=== PATIENT | female | born 1965 | race Caucasian/White ===

== ENCOUNTER 2018-01-27 23:40 | Inpatient (IN) ==
--- NOTE | 2018-01-28 01:05 | Emergency Department Note ---
Disposition Clinical Impression: Cellulitis, toe Qualifiers: Laterality: right Qualified Code(s): L03.031 - Cellulitis of right toe Disposition: Admitted As Inpatient Condition: Good Time of Disposition: 02:51 Extremity Problem HPI - General Chief complaint: ED Extremity Problem,Nontraumatic Stated complaint: R Foot Toe Infection Time Seen by Provider: 01/28/18 00:02 Source: patient Limitations: no limitations Nursing Notes Reviewed: Yes Vital Signs Reviewed: Yes - History of Present Illness HPI Narrative: 53-year-old female diabetic presents with infection to her right second toe. She mentions that she is seen by Dr. Oliver, last appointment was approximately 3 weeks ago, she mentions she had a culture that was negative for MRSA. She mentions her toe has been draining pus for about 1 week. She was in the shower and noticed that it became more swollen which prompted her visit to the emergency department. She mentions a history of neuropathy and mentions that she is unable to determine if she has any worsening pain. She does mention she is concerned for worsening infection as she has had similar to this in her right great toe in the past that ended up with an amputation. She does mention she has had some chills, and some BLE swelling which is typical for her She denies fevers, abdominal pain, weakness, chest pain, shortness of breath, bowel or bladder symptoms. Pain Scale: 3 - Related Data Home Medications Medication Instructions Recorded Confirmed Gabapentin [Neurontin] 900 mg PO DAILY 04/04/17 01/28/18 Insulin Glargine [Lantus] 30 unit SQ DAILY 04/04/17 01/28/18 Metformin HCl [Glucophage] 1,000 mg PO BID 04/04/17 01/28/18 Umeclidinium Brm/Vilanterol Tr 1 each IH DAILY 04/04/17 01/28/18 [Anoro Ellipta 62.5-25 Mcg INH] Vitamin B Complex [B Complex] 1 each PO DAILY 04/04/17 01/28/18 Allergies Allergy/AdvReac Type Severity Reaction Status Date / Time No Known Allergies Allergy Verified 04/04/17 09:51 All systems ED: reviewed and negative except as stated. Review of Systems: As Per HPI Constitutional: Denies: fever, chills, weakness Eyes: Denies: vision change ENT ED: Denies: throat pain Cardiovascular: Denies: palpitations Respiratory: Denies: dyspnea, wheezes, hemoptysis Gastrointestinal: Denies: nausea Genitourinary: Denies: dysuria Musculoskeletal: Denies: back pain Integumentary: Denies: rash Neurological: Denies: headache, weakness, numbness, paresthesias Endocrine: Denies: fatigue Hematological/Lymphatic: Denies: easy bleeding Allergic/Immunologic: Denies: facial swelling Past Medical History - Past Medical History Medical history: Reports: asthma, COPD, diabetes, hyperlipidemia, hypertension, other Surgical history: Reports: orthopedic, other (Toe amputation) Psychiatric history: Reports: no psych history - Social History Smoking Status: Never smoker Smokeless Tobacco Status: No Alcohol use: Reports: none Drug use: Reports: none Physical Exam - General Limitations: no limitations General appearance: alert, in no apparent distress - Head Head exam: normocephalic - Eye Eye exam: Present: EOMI - ENT ENT exam: mucous membranes moist - Neck Neck exam: Present: full ROM - Chest Chest inspection: Present: symmetric chest wall rise - Respiratory Respiratory exam: Absent: respiratory distress - Cardiovascular Cardiovascular exam: Present: regular rate. Absent: tachycardia - Abdominal Exam Abdominal exam: Present: soft, Non-Tender - Extremities Exam Extremities exam: Present: normal capillary refill - Expanded Lower Extremity Exam Hip/Pelvis exam: Present: full ROM. Absent: tenderness Upper leg exam: Present: full ROM. Absent: tenderness Knee exam: Present: full ROM. Absent: tenderness, swelling Lower leg exam: Present: full ROM Ankle exam: Present: normal inspection, full ROM Foot/toe exam: Present: full ROM, swelling (right 2nd toe), erythema (right 2nd toe, active drainage, mild fluctuance), amputation (right great toe well healed). Absent: tenderness, deformity, nail avulsion, subungual hematoma Neurovascular/Tendon exam: Present: sensory deficit Gait: observed and limited by pain - Back Exam Back exam: Present: full ROM - Neurological Exam Neurological exam: Present: alert - Psychiatric Psychiatric exam: Present: normal affect, normal mood - Skin Skin exam: Present: warm, dry, intact, normal color. Absent: rash, cyanosis, diaphoresis Course Course Narrative: Patient presented with concern for infection over her right second toe. She is history diabetes, previous toe amputation, and neuropathy. On examination, right second toe is swollen compared to the contralateral side. There is a small degree of purulent material draining. Mild erythema, and skin breakdown. She has no unilateral leg swelling. Mild erythema over right [place], appears chronic, does not appear to be cellulitic. Patient's vitals within normal limits. We will plan for x-ray, lab work, consider IV antibiotics versus by mo uth antibiotics to home with close podiatry follow-up. - Reevaluation(s) Reevaluation #1: Patient's x-ray no evidence of osteomyelitis. Did discuss patient with Dr. Starks who also had face time with patient, and advised for admission for a IV antibiotics, and likely podiatry consult. BMP still pending. We will plan for IV antibiotics. Time: 02:18 Reevaluation #2: Dr. Starks discussed patient with hospitalist Dr. Paige, who accepted patient and requested IV levaquin Time: 03:52 Vital Signs Temperature 98.6 F 01/27/18 23:43 Pulse Rate 88 01/27/18 23:43 Respiratory Rate 18 01/27/18 23:43 Blood Pressure 159/83 01/27/18 23:43 O2 Sat by Pulse Oximetry 100 01/27/18 23:43 Temperature 98.4 F 01/28/18 03:13 Pulse Rate 88 01/28/18 03:13 Respiratory Rate 18 01/28/18 03:13 Blood Pressure 119/61 01/28/18 03:13 O2 Sat by Pulse Oximetry 99 01/28/18 03:13 Oxygen Delivery Oxygen Delivery Room Air Extremity Problem, [place] [facility] Narrative Medical decision making narrative: Foot X-Ray 01/28/18 01:01 IMPRESSION: 1. Resection or osteomyelitis of the distal phalanx of the 2nd toe. 2. Metallic foreign body in the plantar soft tissues. D/ / Vishal Nettles MD / Vishal Nettles MD Interpreting Provider: Vishal Nettles MD Laboratory Tests 01/28/18 01/28/18 01/28/18 01:27 01:27 01:27 WBC 11.1 RBC 4.08 Hgb 10.9 L Hct 34.3 L MCV 84.1 MCH 26.7 L MCHC 31.8 RDW 13.0 Plt Count 404 H MPV 11.4 Immature Gran % 0.3 Seg Neutrophils % 64.0 Lymphocytes % 25.5 Monocytes % 7.6 Eosinophils % 2.3 Basophils % 0.3 Neutrophils # 7.1 Lymphocytes # 2.8 Monocytes # 0.8 Eosinophils # 0.3 Basophils # 0.0 ESR >= 130 H Sodium 134 L Potassium 3.6 Chloride 97 L Carbon Dioxide 27 BUN 19 Creatinine 1.11 Est GFR ( Amer) > 60 Est GFR (Non-Af Amer) 51 L BUN/Creatinine Ratio 17 Glucose 257 H Calculated Osmolality 289 Lactic Acid Calcium 9.2 C-Reactive Protein 142 H 01/28/18 01:27 WBC RBC Hgb Hct MCV MCH MCHC RDW Plt Count MPV Immature Gran % Seg Neutrophils % Lymphocytes % Monocytes % Eosinophils % Basophils % Neutrophils # Lymphocytes # Monocytes # Eosinophils # Basophils # ESR Sodium Potassium Chloride Carbon Dioxide BUN Creatinine Est GFR ( Amer) Est GFR (Non-Af Amer) BUN/Creatinine Ratio Glucose Calculated Osmolality Lactic Acid 1.9 Calcium C-Reactive Protein - Lab Data Lab results reviewed: Yes I reviewed the patient's lab results. Result diagrams: 01/28/18 01:27 01/28/18 01:27 Lab Results 01/28/18 01/28/18 01/28/18 Range/Units 01:27 01:27 01:27 WBC 11.1 (4.3-11.1) K/mcL RBC 4.08 (3.82-4.97) M/mcL Hgb 10.9 L (11.5-15.4) g/dL Hct 34.3 L (35.3-44.9) % MCV 84.1 (83.0-100.0) fL MCH 26.7 L (28.0-33.3) pg MCHC 31.8 (31.6-35.5) g/dL RDW 13.0 (11.5-14.5) % Plt Count 404 H (140-400) K/mcL MPV 11.4 (9.4-12.4) fL Immature Gran % 0.3 (0-4) % Seg Neutrophils % 64.0 % Lymphocytes % 25.5 % Monocytes % 7.6 % Eosinophils % 2.3 % Basophils % 0.3 % Neutrophils # 7.1 (1.6-8.9) K/mcL Lymphocytes # 2.8 (0.6-4.6) K/mcL Monocytes # 0.8 (0.0-1.3) K/mcL Eosinophils # 0.3 (0.0-0.6) K/mcL Basophils # 0.0 (0.0-0.2) K/mcL ESR >= 130 H (0-15) mm/hr Sodium 134 L (136-145) mEq/L Potassium 3.6 (3.5-5.1) mEq/L Chloride 97 L (98-107) mEq/L Carbon Dioxide 27 (23-29) mEq/L BUN 19 (6-20) mg/dL Creatinine 1.11 (0.60-1.20) mg/dL Est GFR ( Amer) > 60 (> 60) Est GFR (Non-Af Amer) 51 L (> 60) BUN/Creatinine Ratio 17 (6-26) Glucose 257 H (70-105) mg/dL Calculated Osmolality 289 (280-300) Lactic Acid (0.5-2.2) mmol/L Calcium 9.2 (8.6-10.3) mg/dL C-Reactive Protein 142 H (Less than 10) mg/L 01/28/18 Range/Units 01:27 WBC (4.3-11.1) K/mcL RBC (3.82-4.97) M/mcL Hgb (11.5-15.4) g/dL Hct (35.3-44.9) % MCV (83.0-100.0) fL MCH (28.0-33.3) pg MCHC (31.6-35.5) g/dL RDW (11.5-14.5) % Plt Count (140-400) K/mcL MPV (9.4-12.4) fL Immature Gran % (0-4) % Seg Neutrophils % % Lymphocytes % % Monocytes % % Eosinophils % % Basophils % % Neutrophils # (1.6-8.9) K/mcL Lymphocytes # (0.6-4.6) K/mcL Monocytes # (0.0-1.3) K/mcL Eosinophils # (0.0-0.6) K/mcL Basophils # (0.0-0.2) K/mcL ESR (0-15) mm/hr Sodium (136-145) mEq/L Potassium (3.5-5.1) mEq/L Chloride (98-107) mEq/L Carbon Dioxide (23-29) mEq/L BUN (6-20) mg/dL Creatinine (0.60-1.20) mg/dL Est GFR ( Amer) (> 60) Est GFR (Non-Af Amer) (> 60) BUN/Creatinine Ratio (6-26) Glucose (70-105) mg/dL Calculated Osmolality (280-300) Lactic Acid 1.9 (0.5-2.2) mmol/L Calcium (8.6-10.3) mg/dL C-Reactive Protein (Less than 10) mg/L - Radiology Data Radiology results reviewed: Yes I reviewed the patient's radiology results. Attestation Statement - Attestation Attestation: Dr. Starks note: Patient was seen in conjunction with ETHAN Felipe; please see his charting for complete documentation. I spent [id number] time with the patient and I agree with the patient's treatment and disposition. Progressive/worsening/known infection to rt 2nd toe over the past few wks; already followed by the pt's sex offender treatment professional; no constitutional sx; no fever; labs noted; accepted by /to Dr Bedolla @ 2:30 a.m
[2018-01-28 01:38] LABS: Basophils % 0.3 %; Eosinophils # 0.3 K/mcL (0.0-0.6); Eosinophils % 2.3 %; Hematocrit 34.3 % (35.3-44.9); Hemoglobin 10.9 g/dL (11.5-15.4); Immature Granulocytes % 0.3 % (0-4); Lymphocytes # 2.8 K/mcL (0.6-4.6); Lymphocytes % 25.5 %; Mean Corpuscular HGB Conc 31.8 g/dL (31.6-35.5); Mean Corpuscular Hemoglobin 26.7 pg (28.0-33.3); Mean Corpuscular Volume 84.1 fL (83.0-100.0); Mean Platelet Volume 11.4 fL (9.4-12.4); Monocytes # 0.8 K/mcL (0.0-1.3); Monocytes % 7.6 %; Neutrophils # 7.1 K/mcL (1.6-8.9); Platelet Count 404 K/mcL (140-400); Red Blood Count 4.08 M/mcL (3.82-4.97)
[2018-01-28 01:55] LABS: BUN/Creatinine Ratio 17 (6-26); Blood Urea Nitrogen 19 mg/dL (6-20); C-Reactive Protein 142 mg/L (Less than 10); Calcium 9.2 mg/dL (8.6-10.3); Carbon Dioxide 27 mEq/L (23-29); Chloride 97 mEq/L (98-107); Glucose 257 mg/dL (70-105); Osmolality,Calculated 289 (280-300); Potassium 3.6 mEq/L (3.5-5.1); Sodium 134 mEq/L (136-145); eGFR For Non-African Americans 51 (> 60)
[2018-01-28] MEDS ORDERED: cefTRIAXone 1,000 MG in Water for inj. (sterile) 20 ML 10 ML IVP ONE (02:20)
[2018-01-28] MEDS ORDERED: Levofloxacin 750 MG/150 ML 750 MG/150 ML BAG IVPB ONE (02:23)
[2018-01-28] MEDS ORDERED: Acetaminophen 325 MG TABLET PO PRN (07:29)
[2018-01-28] MEDS ORDERED: Naloxone 0.4 MG/ML INJ IVP PRN (07:29)
[2018-01-28] MEDS ORDERED: Dextrose Gel 15 GM/37.5 ML TUBE PO PRN ×2 (07:32)
[2018-01-28] MEDS ORDERED: *HR* Dextrose 50 % in Water (Syg) 50 ML SYRINGE IVP PRN (07:32)
[2018-01-28] MEDS ORDERED: D5% in Water 1,000 ML IVC PRN (07:32)
--- NOTE | 2018-01-28 07:40 | Internal Med History&Physical ---
<Sabino Norwood - Last Filed: 01/28/18 08:24> Date of Encounter: 01/28/18 Time of Encounter: 07:35 Internal Medicine - H&P: HPI Chief complaint: toe pain Admitted From: Home Plans for Post Hospital Care: Home History of present illness: Ms. Clement is a 53 year old female with significant past medical history of type 2 diabetes with complications, COPD, diastolic heart failure, hyperlipidemia and vitamin D deficiency presents the emergency department with swelling of the second toe on the right foot. She had recently been seen by Dr. Oliver in the outpatient setting for incision and drainage of a wound on her second toe of her right foot. Cultures were obtained which demonstrated Staphylococcus lugdunensis. Her toe had been healing well until the past week which has since been draining pus from the wound site, increased swelling up into her calf associated with a sharp pain. She had been applying alcohol, Bacitracin and peroxide to the effected toe without improvement. She noticed in the shower last evening that it became swollen prompting her to present to the emergency department for further evaluation. She does have complications secondary to diabetes include bilateral lower extremity neuropathy, edema and previous amputation of her distal portion of her right hallux. She mentions that she did have some complaints of chills but denies any fevers, diaphoresis, abdominal pains, nausea vomiting diarrhea, chest pain shortness of breath or other lesions. Past Med Surg Social Fam HX - Past Medical History Medical history: asthma, COPD, diabetes, hyperlipidemia, hypertension, other Additional medical history: neuropathy feet. retinopathy right eye Psychiatric history: no psych history - Past Surgical History Surgical History: orthopedic, other (Toe amputation) Additional surgical history: eye surgeryx 5 - Social History Smoking Status: Never smoker Smokeless Tobacco Status: No Alcohol use: none Drug use: none - Family History Sister Hx Family Cardiac Disorders: Yes Internal Medicine - H&P: Meds Gabapentin [Neurontin] 900 mg PO DAILY 04/04/17 [History] Insulin Glargine [Lantus] 30 unit SQ DAILY 04/04/17 [History] Metformin HCl [Glucophage] 1,000 mg PO BID 04/04/17 [History] Umeclidinium Brm/Vilanterol Tr [Anoro Ellipta 62.5-25 Mcg INH] 1 each IH DAILY 04/04/17 [History] Vitamin B Complex [B Complex] 1 each PO DAILY 04/04/17 [History] 3 Allergy/AdvReac Type Severity Reaction Status Date / Time No Known Allergies Allergy Verified 04/04/17 09:51 All Systems PM: A 10-system review of systems was performed and is negative for pertinent findings except as documented above in the HPI. - Constitutional Constitutional: chills, no anorexia, no excessive sweating, no fatigue, no fever(s), no falls, no night sweats - EENT Eyes: no blurry vision, no irritation Nose, mouth and throat: no mouth pain - Cardiovascular Cardiovascular ROS IM: edema, no chest pain, no claudication, no diaphoresis, no dyspnea, no orthopnea, no palpitations - Respiratory Respiratory: no cough, no dyspnea, no wheezing, no snoring - Gastrointestinal Gastrointestinal: no abdominal pain, no nausea, no vomiting - Musculoskeletal Musculoskeletal ROS IM: joint swelling, numbness - Constitutional Vitals: Temp Pulse Resp BP Pulse Ox 98.1 F 84 14 133/79 98 01/28/18 06:14 01/28/18 06:14 01/28/18 06:14 01/28/18 06:14 01/28/18 06:14 General appearance: Present: A&O X 3 Exam: Gen: alert, oriented, interactive in no acute distress HEENT: NC/AT, PERRLA, mucus membranes moist, neck supple, trachea midline Cardiac: RRR, grade 2/6 systolic ejection murmur heard best over the mitral valve region RESP: CTABL Abdomen: obese, soft, nontender Extremities: patient moving all 4 extremities without restriction, bilateral edema with right>left with swelling of the right 2nd toe with associated drainage and tissue discoloration. No significant erythema past the 2nd toe. right hallux demonstrates previous amputation past the distal joint. Internal Med - H&P Results - Labs CBC & Chem 7: 01/28/18 01:27 01/28/18 01:27 Labs: Short CBC 01/28/18 Range/Units 01:27 WBC 11.1 (4.3-11.1) K/mcL Hgb 10.9 L (11.5-15.4) g/dL Hct 34.3 L (35.3-44.9) % Plt Count 404 H (140-400) K/mcL Neutrophils # 7.1 (1.6-8.9) K/mcL BMP 01/28/18 01:27 Sodium 134 L Potassium 3.6 Chloride 97 L Carbon Dioxide 27 BUN 19 Creatinine 1.11 Glucose 257 H Calcium 9.2 - Impressions ITS Impressions Foot X-Ray 01/28/18 01:01 IMPRESSION: 1. Resection or osteomyelitis of the distal phalanx of the 2nd toe. 2. Metallic foreign body in the plantar soft tissues. D/ / Vishal Nettles MD / Vishal Nettles MD Interpreting Provider: Vishal Nettles MD - Assessment and plan (1) Acute osteomyelitis of toe of right foot Current Visit: Yes Status: Acute Assessment and plan: patient presenting with right foot second toe swelling and drainage - lanced on 01/12/[address] Oliver's clinic with cultures growing Staphylococcus lugdunensis with broad sensitivity (resistant to Oxacillin) - patient had increase in edema, drainage (no pain since diabetic neuropathy in lower extremities) - ESR >130, CRP 142 - X-ray concerning for osteomylitis - Received a dose of ceftriaxone and Levaquin in the emergency department, due to his bacteria having increased resistance will start on vancomycin at this time. - Consult placed to Dr. Oliver, he plans to see her inpatient. (2) Uncontrolled type II diabetes mellitus with foot ulcer Current Visit: Yes Status: Acute Assessment and plan: Patient has a history of type 2 diabetes which is uncontrolled the setting of morbid obesity. Just secondary complications of previous osteomyelitis of the right hallux resulting in distal amputation in 2014, presenting with diabetic foot ulcer likely osteomyelitis. - Before meals at bedtime glucose checks - Sliding-scale insulin low dose - Levemir 10 units twice a day - Diabetic diet, nothing by mouth on Saturday night after midnight for potential operation on (3) Diabetic neurogenic arthropathy Current Visit: Yes Status: Acute Assessment and plan: Patient has bilateral lower extremity diabetic neuropathy with poor sensation exhibited during evaluation. Likely contributing to diabetic foot ulcers. - Patient is seen by podiatry - We will continue tight glucose control - Renal function appropriate, continue home dose of 900 mg at bedtime (4) Morbid obesity Current Visit: Yes Status: Acute Assessment and plan: Diabetic diet, calorie restrictions (5) COPD (chronic obstructive pulmonary disease) Current Visit: Yes Status: Acute Assessment and plan: History of COPD with mild obstructive lung disease. - Spiriva - Dual nebs when necessary Qualifiers: COPD type: unspecified COPD Qualified Code(s): J44.9 - Chronic obstructive pulmonary disease, unspecified (6) DVT prophylaxis Current Visit: Yes Status: Acute Assessment and plan: Subcutaneous heparin 5000 units every 8 hours - Time Spent With Patient Total time spent is greater than 50% in coordination of care (as documented) at patient's floor/unit and/or counseling patient: <Petrona Wilson - Last Filed: 01/28/18 09:18> Date of Encounter: 01/28/18 Internal Medicine - H&P: HPI History of present illness: Ms. Clement is a 53 year old female All Systems PM: A 10-system review of systems was performed and is negative for pertinent findings except as documented above in the HPI. - Constitutional Vitals: Temp Pulse Resp BP Pulse Ox 98.1 F 84 14 133/79 98 01/28/18 06:14 01/28/18 06:14 01/28/18 06:14 01/28/18 06:14 01/28/18 06:14 Internal Med - H&P Results - Labs CBC & Chem 7: 01/28/18 01:27 01/28/18 01:27 Labs: Short CBC 01/28/18 Range/Units 01:27 WBC 11.1 (4.3-11.1) K/mcL Hgb 10.9 L (11.5-15.4) g/dL Hct 34.3 L (35.3-44.9) % Plt Count 404 H (140-400) K/mcL Neutrophils # 7.1 (1.6-8.9) K/mcL BMP 01/28/18 01:27 Sodium 134 L Potassium 3.6 Chloride 97 L Carbon Dioxide 27 BUN 19 Creatinine 1.11 Glucose 257 H Calcium 9.2 - Impressions ITS Impressions Foot X-Ray 01/28/18 01:01 IMPRESSION: 1. Resection or osteomyelitis of the distal phalanx of the 2nd toe. 2. Metallic foreign body in the plantar soft tissues. D/ / Vishal Nettles MD / Vishal Nettles MD Interpreting Provider: Vishal Nettles MD - Assessment and plan (1) Acute osteomyelitis of toe of right foot Current Visit: Yes Status: Acute (2) Uncontrolled type II diabetes mellitus with foot ulcer Current Visit: Yes Status: Acute (3) Diabetic neurogenic arthropathy Current Visit: Yes Status: Acute (4) Morbid obesity Current Visit: Yes Status: Acute (5) COPD (chronic obstructive pulmonary disease) Current Visit: Yes Status: Acute Qualifiers: COPD type: unspecified COPD Qualified Code(s): J44.9 - Chronic obstructive pulmonary disease, unspecified (6) DVT prophylaxis Current Visit: Yes Status: Acute - Time Spent With Patient Total time spent is greater than 50% in coordination of care (as documented) at patient's floor/unit and/or counseling patient: - Attending Attestation I have seen and examined this patient independently. I have discussed with resi dent physician Dr. Norwood regarding the management plan. Agree with the documentation.
[2018-01-28] MEDS ORDERED: Ipratropium/Albuterol Neb 3 ML IH PRN (08:01)
[2018-01-28] MEDS ORDERED: Tdap (Boostrix) Vaccine 0.5 ML SYRINGE IM ONE (08:44)
[2018-01-28] MEDS ORDERED: Gabapentin 300 MG CAPSULE PO SCH (09:00)
[2018-01-28] MEDS: Insulin DETEMIR 100 UNIT/ML X5UNITS SQ SCH ×2 (09:32→22:18)
[2018-01-28] MEDS: Tiotropium 18 MCG inhalation IH SCH (11:04)
[2018-01-28] MEDS: Insulin LISPRO 300 UNITS/3 ML VIAL SQ SCH ×3 (12:13→22:17)
[2018-01-28] MEDS ORDERED: Isovue-370 500 ML INFUS..BTL IV ONE (13:32)
--- NOTE | 2018-01-28 13:51 | Podiatry Consult Note ---
Date of Encounter: 01/28/18 Time of Encounter: 12:00 Assessment and Plan (1) Acute osteomyelitis of toe of right foot Current visit: Yes Status: Acute Assessment: Edematous and erythematous right 2nd toe. Fluctuance noted to dorsal aspect of toe. Hyperkeratosis noted to plantar aspect and distal tip of toe. No drainage noted. Purple discoloration noted to dorsal aspect of 2nd toe. WBC 11.1 ESR > 130, CRP 142 Blood cultures pending Wound cultures received but not reported. Xray noted OM to 2nd toe distal phalanx XR/XR foot 3V RT IMPRESSION: 1. Resection or osteomyelitis of the distal phalanx of the 2nd toe. 2. Metallic foreign body in the plantar soft tissues. Plan: ABIs ordered CT with contrast of right foot ordered. Covered toe with adaptic, 4x4 dry gauze, and kerlex. Surgery with Dr. Oliver for toe amputation- time to be determined. NPO after midnight Saturday. History of Present Illness HPI: Ms. Clement is a 53 year old female who is known to podiatry clinic. Patient with PMH of HTN, HLD, DM type II, Vitamin D deficiecny, COPD (bronchitis), obesity, RF, Diabetic retinopathy with retinal surgery, partial right great toe amputation, Diabetic neuropathy, and obesity. Patient reports she was seen in office with Dr. Oliver on 01/07/18 where she was noted to have a hemorrhagic bullae noted. Bullae was debrided in office and patient was instructed to wash and dry foot with warm water and soap and to keep dry dressing to foot. Patient reports she was to have a follow up appointment with Dr. Oliver on 02/04/18. Patient reports worsening smell and purulent drainage noted last evening 01/27/18 and came to the hospital. Reports edema and erythema to RLE. Reports occasional shooting pain up leg. Denies fevers, chills, nausea, vomiting, chest pain, calf pain, or shortness of breath. Past Med Surg Social Fam HX - Past Medical History Medical history: asthma, COPD, diabetes, hyperlipidemia, hypertension, other Additional medical history: neuropathy feet. retinopathy right eye Psychiatric history: no psych history - Past Surgical History Surgical History: orthopedic, other (Toe amputation) Additional surgical history: eye surgeryx 5 - Social History Smoking Status: Never smoker Smokeless Tobacco Status: No Alcohol use: none Drug use: none - Family History Sister Hx Family Cardiac Disorders: Yes Medications and Allergies Gabapentin [Neurontin] 900 mg PO DAILY 04/04/17 [History] Insulin Glargine [Lantus] 30 unit SQ DAILY 04/04/17 [History] Metformin HCl [Glucophage] 1,000 mg PO BID 04/04/17 [History] Vitamin B Complex [B Complex] 1 each PO DAILY 04/04/17 [History] Albuterol Sulfate [Ventolin Hfa] 2 puff IH Q6H PRN 01/28/18 [History] Furosemide [Lasix] 20 mg PO DAILY 01/28/18 [History] Insulin LISPRO [Humalog Kwikpen U-100] 0 unit SQ TID PRN 01/28/18 [History] Losartan/Hydrochlorothiazide [Hyzaar 100-25 Tablet] 1 tab PO DAILY 01/28/18 [History] Magnesium Oxide [Magnesium] 250 mg PO DAILY 01/28/18 [History] Mometasone/Formoterol [Dulera 100 Mcg/5 Mcg Inhaler] 2 puff IH BID 01/28/18 [History] Turmeric Root Extract [Turmeric] 500 mg PO DAILY 01/28/18 [History] Zolpidem [Ambien] 10 mg PO HS PRN 01/28/18 [History] glipiZIDE [Glucotrol] 5 mg PO BIDWM 01/28/18 [History] Allergy/AdvReac Type Severity Reaction Status Date / Time No Known Allergies Allergy Verified 04/04/17 09:51 All Systems Reviewed: The remainder of the systems were reviewed and are negative - Constitutional Constitutional: no fever(s) - Cardiovascular Cardiovascular: leg edema, pedal edema, no chest pain, no dyspnea - Respiratory Respiratory: no dyspnea - Musculoskeletal Musculoskeletal: as per HPI, numbness, radiating pain into limb, tingling, no muscle cramps Physical Exam - Constitutional Vitals: Temp Pulse Resp BP Pulse Ox 97.3 F L 78 15 134/83 96 01/28/18 10:41 01/28/18 10:41 01/28/18 10:41 01/28/18 10:41 01/28/18 10:41 Exam: Constitiutional: Alert and oriented x 3. Vascular: non palpable DP/PT, CFT <3 sec to digits 3-5, no nail noted to 2nd digit RLE, skin blanchable, warm to warm from tibia to toes RLE, 1st hallux partial amputation RLE, no calf pain with squeeze RLE Neurologic: Diminished sensation to touch, normal plantar response, Abnormal position sense dorsiflexion/plantar flexion Dermatologic: right second toe with hyperkeratosis noted to plantar aspect, dorsal aspect of toe noted to be erythematous and edematous, purple discoloration noted to nail bed. No nail noted. No drainage noted. Musculoskeletal: 5/5 muscle strength and normal tone RLE Results - Labs Result Diagrams: 01/28/18 01:27 01/28/18 01:27 Labs: Abnormal lab results Hgb 10.9 g/dL (11.5-15.4) L 01/28/18 01:27 Hct 34.3 % (35.3-44.9) L 01/28/18 01:27 MCH 26.7 pg (28.0-33.3) L 01/28/18 01:27 Plt Count 404 K/mcL (140-400) H 01/28/18 01:27 ESR >= 130 mm/hr (0-15) H 01/28/18 01:27 Sodium 134 mEq/L (136-145) L 01/28/18 01:27 Chloride 97 mEq/L (98-107) L 01/28/18 01:27 Est GFR (Non-Af Amer) 51 (> 60) L 01/28/18 01:27 Glucose 257 mg/dL (70-105) H 01/28/18 01:27 C-Reactive Protein 142 mg/L (Less than 10) H 01/28/18 01:27 H & H 01/28/18 Range/Units 01:27 Hgb 10.9 L (11.5-15.4) g/dL Hct 34.3 L (35.3-44.9) % All other labs normal. - Diagnostic results Ankle/Foot x-ray: report reviewed Consult Discharge Plan - Plan Referrals: Lia Browne, TRAUMA COUNSELLOR [Primary Care Provider] -
[2018-01-28 15:36] LABS: Estimated Average Glucose 214 mg/dl; Hemoglobin A1C 9.1 %
[2018-01-28] MEDS: *HR* Heparin 5,000 UNIT/ML VIAL SQ SCH ×2 (16:30→22:18)
[2018-01-28] MEDS: traMADol 50 MG TABLET PO PRN (19:47)
[2018-01-28] MEDS: Gabapentin 300 MG CAPSULE PO SCH (19:47)
[2018-01-29 04:42] LABS: Basophils % 0.2 %; Eosinophils # 0.2 K/mcL (0.0-0.6); Eosinophils % 2.7 %; Hematocrit 32.4 % (35.3-44.9); Hemoglobin 10.4 g/dL (11.5-15.4); Immature Granulocytes % 0.2 % (0-4); Lymphocytes % 35.5 %; Mean Corpuscular HGB Conc 32.1 g/dL (31.6-35.5); Mean Corpuscular Volume 84.2 fL (83.0-100.0); Mean Platelet Volume 11.4 fL (9.4-12.4); Monocytes # 0.6 K/mcL (0.0-1.3); Monocytes % 7.5 %; Neutrophils # 4.6 K/mcL (1.6-8.9); Nucleated Red Blood Cells 0.2 /100 WBC (0); Platelet Count 436 K/mcL (140-400); Red Blood Count 3.85 M/mcL (3.82-4.97); Red Cell Distribution Width 13.2 % (11.5-14.5); Segmented Neutrophils % 53.9 %
[2018-01-29 05:03] LABS: BUN/Creatinine Ratio 16 (6-26); Blood Urea Nitrogen 15 mg/dL (6-20); Calcium 9.2 mg/dL (8.6-10.3); Carbon Dioxide 28 mEq/L (23-29); Chloride 100 mEq/L (98-107); Glucose 184 mg/dL (70-105); Osmolality,Calculated 288 (280-300); Potassium 3.6 mEq/L (3.5-5.1); Sodium 136 mEq/L (136-145); eGFR For Non-African Americans > 60 (> 60)
[2018-01-29] MEDS: *HR* Heparin 5,000 UNIT/ML VIAL SQ SCH ×3 (06:38→21:06)
[2018-01-29] MEDS: Insulin LISPRO 300 UNITS/3 ML VIAL SQ SCH ×4 (07:39→21:06)
[2018-01-29] MEDS: Insulin DETEMIR 100 UNIT/ML X5UNITS SQ SCH ×2 (10:08→21:06)
[2018-01-29] MEDS: Tiotropium 18 MCG inhalation IH SCH (11:45)
--- NOTE | 2018-01-29 12:59 | Podiatry Progress Note ---
Date of Encounter: 01/29/18 Time of Encounter: 10:15 - Assessment and Plan (1) Acute osteomyelitis of toe of right foot Current Visit: Yes Status: Acute Assessment: Edematous and erythematous right 2nd toe. Fluctuance noted to dorsal aspect of toe. Hyperkeratosis noted to plantar aspect and distal tip of toe. No drainage noted. Purple discoloration noted to dorsal aspect of 2nd toe. WBC 8.5 today 01/28/18 ESR > 130, CRP 142 Blood cultures pending Wound cultures show no pathogens at this time Xray noted OM to 2nd toe distal phalanx FORREST prelim-Right PT- 0.93 DP-1.07, Left PT- 1.27 and DP- 1.32. CT reviewed, showed OM HGB A1C 9.1 CT/CT foot RT w con IMPRESSION: 1. Findings above consistent with osteomyelitis along the distal phalanx of the 2nd digit and along the distal aspect of the middle phalanx of the 2nd digit with associated soft tissue and intramedullary gas and a severe cellulitis of the 2nd digit. Ulceration of the distal 2nd digit. 2. Moderate cellulitis of the ankle and foot. 3. Prior amputation of the distal phalanx of the 1st digit. 4. No discrete rim enhancing organized fluid collection identified. The findings were sent to the [facility] at 3:12 pm on 01/28/2018to be communicated to a licensed caregiver. Plan: Dressing to 2nd toe C/D/I Nursing changed this am. Surgery tomorrow with Dr. Oliver. Plan for partial amp of 2nd toe, possible complete amputation NPO after midnight Subjective Interval history: Patient awake in bed. Alert and oriented x 3. No signs of distress noted. Reports improvement in swelling and redness to RLE. Denies any nausea, fever, chest pain, calf pain, shortness of breath, diarrhea, vomiting, or chills. Patient aware of plan for surgery tomorrow. No other questions or concerns at this time. Objective - Vital Signs Vital Signs: Vital Signs Temp Pulse Resp BP Pulse Ox 01/29/18 11:46 16 96 01/29/18 10:28 98.2 F 81 15 116/80 96 01/29/18 06:43 98.0 F 77 14 118/79 96 01/29/18 02:44 97.9 F 90 16 126/73 93 01/28/18 19:26 98.9 F 82 11 144/80 95 01/28/18 13:57 97.7 F 76 15 148/80 95 Intake and Output 01/28/18 01/29/18 01/29/18 23:59 07:59 15:59 Intake Total 0 / 0 500 / 500 120 / 120 Output Total 800 / 800 600 / 600 0 / 0 Balance -800 / -800 -100 / -100 120 / 120 Intake: IV Fluids 500 / 500 Vancocin 2,000 MG In 0.9 % 500 / 500 Sodium Chloride 500 ML @ 250 mls/hr IVPB Q12H MEME Rx#: [id number] Oral 0 / 0 0 / 0 120 / 120 Output: Urine 800 / 800 600 / 600 0 / 0 Other: Meal Dinner Breakfast Percent of Meal Consumed 100% 100% Stool Size Moderate # Voids 1 # Bowel Movements 1 Weight 157.3 kg Blood Glucose* 211 173 289 Patient Weight 01/29/18 23:59 Weight 157.3 kg - Exam Exam: Constitiutional: Alert and oriented x 3. Vascular: non palpable DP/PT, CFT <3 sec to digits 3-5, no nail noted to 2nd digit RLE, skin blanchable, warm to warm from tibia to toes RLE, 1st hallux partial amputation RLE, no calf pain with squeeze RLE Neurologic: Diminished sensation to touch, normal plantar response, Abnormal position sense dorsiflexion/plantar flexion Dermatologic: right second toe with hyperkeratosis noted to plantar aspect, dorsal aspect of toe noted to be erythematous and edematous, purple discoloration noted to nail bed. No nail noted. No drainage noted. Musculoskeletal: 5/5 muscle strength and normal tone RLE - Lab Result Diagrams: 01/29/18 03:59 01/29/18 03:59 Labs: Abnormal lab results Hgb 10.4 g/dL (11.5-15.4) L 01/29/18 03:59 Hct 32.4 % (35.3-44.9) L 01/29/18 03:59 MCH 27.0 pg (28.0-33.3) L 01/29/18 03:59 Plt Count 436 K/mcL (140-400) H 01/29/18 03:59 Nucleated RBCs/100 WBC 0.2 /100 WBC (0) H 01/29/18 03:59 ESR >= 130 mm/hr (0-15) H 01/28/18 01:27 Glucose 184 mg/dL (70-105) H 01/29/18 03:59 POC Glucose 234 mg/dL (70-99) H 01/28/18 16:24 Hemoglobin A1c 9.1 % (-5.6) H 01/28/18 14:57 C-Reactive Protein 142 mg/L (Less than 10) H 01/28/18 01:27 Microbiology, Last 48 Hours 01/28/18 09:30 Wound Culture - Preliminary Second Right Toe No pathogens isolated. 01/28/18 01:27 Blood Culture - Preliminary Peripheral Venipuncture Culture is incubating and being continuously monitored for growth. Final report to follow. 01/28/18 01:27 Blood Culture - Preliminary Peripheral Venipuncture Culture is incubating and being continuously monitored for growth. Final report to follow. Consult Discharge Plan - Plan Additional Instructions: Follow up in office 1 week post discharge. Please make appointment prior to d/c from hospital. Referrals: Lia Browne CNP [Primary Care Provider] - Dez Oliver DPM [Partnered Physician] -
--- NOTE | 2018-01-29 19:23 | Anesthesia Evaluation PreOp ---
Date of Encounter: 01/29/18 Time of Encounter: 21:30 - Past History Planned Operation: R-partial 2nd Toe Amp Cardiac History: CHF (diastolic heart failure [Denies]), Hyperlipidemia Pulmonary History: COPD, ILIR Dx (Non-compliant CPAP use) EDUCATIONAL ASSISTANT History: Other (Diabetic Neuropathy [feet]/Retinopathy) Other Medical History: Diabetes Type II Anesthesia History: No Prior Anesthetic Complications, Past Anesthesia (Eye surgery x 5, Toe Amp,) Alcohol Use: none Drug use: none Medications and Allergies Gabapentin [Neurontin] 900 mg PO DAILY 04/04/17 [History] Insulin Glargine [Lantus] 30 unit SQ DAILY 04/04/17 [History] Metformin HCl [Glucophage] 1,000 mg PO BID 04/04/17 [History] Vitamin B Complex [B Complex] 1 each PO DAILY 04/04/17 [History] Albuterol Sulfate [Ventolin Hfa] 2 puff IH Q6H PRN 01/28/18 [History] Furosemide [Lasix] 20 mg PO DAILY 01/28/18 [History] Insulin LISPRO [Humalog Kwikpen U-100] 0 unit SQ TID PRN 01/28/18 [History] Losartan/Hydrochlorothiazide [Hyzaar 100-25 Tablet] 1 tab PO DAILY 01/28/18 [History] Magnesium Oxide [Magnesium] 250 mg PO DAILY 01/28/18 [History] Mometasone/Formoterol [Dulera 100 Mcg/5 Mcg Inhaler] 2 puff IH BID 01/28/18 [History] Turmeric Root Extract [Turmeric] 500 mg PO DAILY 01/28/18 [History] Zolpidem [Ambien] 10 mg PO HS PRN 01/28/18 [History] glipiZIDE [Glucotrol] 5 mg PO BIDWM 01/28/18 [History] Allergy/AdvReac Type Severity Reaction Status Date / Time No Known Allergies Allergy Verified 04/04/17 09:51 - Meds/Allergy Pre-op Review Medications Reviewed: Yes Allergies Reviewed: Yes Beta Blockers on Current Med List: No Anesthesia Results - Labs 01/29/18 03:59 01/29/18 03:59 Laboratory Tests 04/04/17 01/28/18 01/28/18 10:16 14:57 20:16 PT 11.3 INR 1.1 APTT 31.9 Est GFR (Non-Af Amer) POC Glucose 211 H Est Mean Plasma Glucose 214 Hemoglobin A1c 9.1 H 01/29/18 03:59 PT INR APTT Est GFR (Non-Af Amer) > 60 POC Glucose Est Mean Plasma Glucose Hemoglobin A1c - Imaging EKG: report reviewed (91bpm - SINUS RHYTHM Poor R wave progression Electronically Signed On 04-04-2017 20:33:25 EST by Cl Katz MD) Additional studies: ECHO 10/24/2017 EV/EV echocardiogram Impressions: Technically sub-optimal due to body habitus. LVEF 55-60%. Not all LV segments were well visualized, but overall LVEF appears normal. Moderate left ventricular diastolic dysfunction. Grossly, the right ventricle is mildly dilated. Function is normal. Borderline mild pulmonary hypertension. No obvious significant valvular dysfunction. Left Ventricular Wall Motion: Rest Echo Findings All wall segments showed normal motion. Anesthesia Exam Vital Signs Temp Pulse Resp BP Pulse Ox 01/29/18 18:56 98.5 F 82 14 137/83 97 01/29/18 14:28 98.4 F 84 15 132/58 96 01/29/18 11:46 16 96 01/29/18 10:28 98.2 F 81 15 116/80 96 01/29/18 06:43 98.0 F 77 14 118/79 96 01/29/18 02:44 97.9 F 90 16 126/73 93 Intake and Output 01/29/18 01/29/18 01/29/18 07:59 15:59 23:59 Intake Total 500 / 500 740 / 740 Output Total 600 / 600 0 / 0 Balance -100 / -100 740 / 740 Intake: IV Fluids 500 / 500 500 / 500 Vancocin 2,000 MG In 0.9 % 500 / 500 500 / 500 Sodium Chloride 500 ML @ 250 mls/hr IVPB Q12H MEME Rx#: [id number] Oral 0 / 0 240 / 240 Output: Urine 600 / 600 0 / 0 Other: Meal Lunch Dinner Percent of Meal Consumed 100% 100% # Voids 1 Weight 157.3 kg Blood Glucose* 173 289 253 Patient Weight 01/29/18 23:59 Weight 157.3 kg Height: 5'5" Weight: 346# BMI = 58 - HEENT Pupil (Motor): Pupils equal, EOMI - EDUCATIONAL ASSISTANT LOC: Oriented EDUCATIONAL ASSISTANT Motor: Normal RUE, Normal LUE, Normal RLE, Normal LLE, Normal Face EDUCATIONAL ASSISTANT Sensory: Normal: RUE, LUE, RLE, LLE, Face - Cardiac Rhythm: Regular Murmur: None - Pulmonary Breath Sounds: bilateral Clear Respiratory Effort: Symmetrical Anesthesia Assess/Plan ASA Score: 3 (MO/BMI = 58, DM, COPD) Level of consciousness: Cooperative, Oriented, Tranquil Anesthetic Plan: General, MAC Monitoring Plan: Standard Monitors Recovery Plan: PACU Anes Supervising Prov Stmt: Pt seen/evaluated, R&B discussed, questions answered and consent obtained. Jovita Marte MD
[2018-01-29] MEDS: Gabapentin 300 MG CAPSULE PO SCH (20:01)
[2018-01-29] MEDS: Budesonide/Formoterol 160/4.5 1 PUFF INH IH SCH (22:33)
[2018-01-29] MEDS: traMADol 50 MG TABLET PO PRN (22:58)
--- NOTE | 2018-01-29 23:04 | Internal Med Progress Note ---
Hospitalist Progress Note - Encounter Date of Encounter: 01/29/18 Time of Encounter: 19:00 - Subjective Interval History: SUBJECTIVE: The patient feels pretty good. The pain in the area of right foot seems to be under control. Denies chest pain. Denies difficulty breathing, coughing and wheezing. She has normal urination. OBJECTIVE: Skin: Free of rash and discoloration. See notes from podiatry describing the diabetic ulcer of seconds right toe. ENMT: Oral/pharyngeal mucosa is normal in appearance. Eyes: Sclera is white. There is no discharge from eyes. Respiratory: Normal breath sounds; no crackles or wheezes. CV: Heart is regular; no gallop or murmur. GI: Abdomen is soft and not tender. There is no palpable mass or visceromegaly. Neuro: There is no focal deficits. ADDITIONAL DATA: Hemoglobin is 10.4 with normal WBC. Platelet count is 436,000. Electrolytes are normal. Creatinine is 0.92. Her fingersticks and her glucose from today were 173, 289 and 253. ASSESSMENT AND PLAN: Osteomyelitis of second right toe (the right foot). See notes from podiatry. The patient is on IV vancomycin. She will undergo surgery tomorrow. Type 2 diabetes mellitus with hyperglycemia, diabetic foot ulcer and diabetic neuropathy. To continue Levemir and when necessary Humalog. We will do adjustments, if needed. COPD. Stable/controlled. To continue Spiriva and when necessary inhalations with DuoNeb. Morbid obesity with BMI of 57.8. To consult our foreign exchange student coordinator. - Exam Vitals: Temp Pulse Resp BP Pulse Ox 98.5 F 82 16 137/83 97 01/29/18 18:56 01/29/18 18:56 01/29/18 22:33 01/29/18 18:56 01/29/18 22:33 Exam: xx - Assessment and Plan (1) Acute osteomyelitis of toe of right foot Current Visit: Yes Status: Acute (2) Type 2 diabetes mellitus with hyperglycemia Current Visit: Yes Status: Acute (3) Type 2 diabetes mellitus with foot ulcer Current Visit: Yes Status: Acute (4) Type 2 diabetes mellitus with diabetic neuropathy Current Visit: Yes Status: Acute (5) COPD (chronic obstructive pulmonary disease) Current Visit: Yes Status: Acute (6) Morbid obesity with BMI of 50.0-59.9, adult Current Visit: Yes Status: Chronic - Time Spent with Patient Total time spent is greater than 50% in coordination of care (as documented) at patient's floor/unit and/or counseling patient: Internal Medicine: Result - Labs CBC & Chem 7: 01/29/18 03:59 01/29/18 03:59 Labs: Short CBC 01/29/18 Range/Units 03:59 WBC 8.5 (4.3-11.1) K/mcL Hgb 10.4 L (11.5-15.4) g/dL Hct 32.4 L (35.3-44.9) % Plt Count 436 H (140-400) K/mcL Neutrophils # 4.6 (1.6-8.9) K/mcL BMP 01/29/18 03:59 Sodium 136 Potassium 3.6 Chloride 100 Carbon Dioxide 28 BUN 15 Creatinine 0.92 Glucose 184 H Calcium 9.2 Consult Discharge Plan - Plan Additional Instructions: Follow up in office 1 week post discharge. Please make appointment prior to d/c from hospital. Referrals: Dez Oliver DPM [Partnered Physician] - Lia Browne CNP [Primary Care Provider] - (5) COPD (chronic obstructive pulmonary disease) Qualifiers: COPD type: unspecified COPD Qualified Code(s): J44.9 - Chronic obstructive pulmonary disease, unspecified
[2018-01-30] MEDS: *HR* Heparin 5,000 UNIT/ML VIAL SQ SCH ×3 (05:05→21:41)
[2018-01-30] MEDS: Insulin LISPRO 300 UNITS/3 ML VIAL SQ SCH ×4 (08:17→21:41)
[2018-01-30] MEDS ORDERED: *HR* Midazolam HCl 2 MG/2 ML VIAL ONE (08:18)
[2018-01-30] MEDS ORDERED: *HR* FentaNYL (PF) 100 MCG/2 ML VIAL ONE (08:18)
[2018-01-30] MEDS ORDERED: Lidocaine -MPF 2% 2 ML VIAL ONE (08:19)
[2018-01-30] MEDS ORDERED: Propofol 500 MG/50 ML INFUS..BTL ONE (08:20)
[2018-01-30] MEDS ORDERED: Bupivacaine/Clonidine Syringe 1 EACH SYRINGE ONE (09:14)
[2018-01-30] MEDS ORDERED: *HR* Propofol 200 MG/20 ML VIAL IVP ONE (09:58)
--- NOTE | 2018-01-30 10:22 | Orthopedic Operative Note ---
Date of procedure: 01/30/18 Pre-op diagnosis: #1: Necrotic toe #2 right foot with osteomyelitis Post-op diagnosis: same Procedure: 01/30/18 10:18 #1: Amputation second toe at the level of the base of proximal phalanx, right foot Implants: None Complications: None Anesthesia: MAC, local Local Anesthetics: 0.25% Sensorcaine HCL SubQ (cc) Surgeon: Dez Oliver Was there an assistant food service manager present: No Estimated blood loss (cc): 5 Tourniquet Time (Minutes): 0 Specimen: Toe #2 right foot Condition: stable Disposition: floor Procedure in Detail: 01/30/18 10:19 Details in summary of procedure: Patient brought to surgical suite. A sign in procedure was performed. Patient was then transferred surgical table positioned properly safely securely. Right foot is elevated on a foam block. No tourniquet was used. The right foot was then prepped with alcohol 3 times. Anesthetic timeout was taken patient was sedated. A modified ankle block was carried out with Marcaine with clonidine. No epinephrine. Right foot was then prepped and draped in usual sterile manner. Surgical timeout taken. Inspection of the second digit noted the toe to be completely indurated. Necrosis of the distal aspect of the second toe. Review of MRI reveals osteomyelitis distal and middle phalanx. At that juncture a standard incision was begun dorsal aspect second MTPJ and brought medially and laterally meeting at the base of the sulcus of the toe. This racquet incision was completed down to bone. Periosteal elevation with a clean 15 was performed down the base the proximal phalanx. The toe was disarticulated level of the proximal phalangeal joint. The head of the proximal phalanx was be pristine. The cartilaginous surfaces of the second toe proximal phalanx was pristine. Normal color texture density. No further necrosis proximally. No evidence of infection. Wound edges of the incision were noted to bleed freely without necessitating use of Bovie ligature. Wound was then flushed with copious amounts sterile saline. Finding no bone chips or debris dissection was carried down the base the proximal phalanx. At which time the osteotomy was complete the base of shaft of the proximal phalanx leaving the base of the phalanx intact. The wound was then flushed with copious must sterile saline. Finding no bone chips or debris the flexor tendons and the extensor tendons were anastomosed with 3-0 Vicryl. Skin closed with 3-0 Prolene. No complications assessment blood loss less than 5 mL was then dressed with sterile Adaptic 4 x 4's and Kerlix. Capillary rebound t blas was noted to be 3 seconds or less of toes #[id number]. Patient was then sent to holding room in good condition with vital signs stable.
[2018-01-30] MEDS ORDERED: D5% in Water 1,000 ML IVC PRN (10:43)
[2018-01-30] MEDS ORDERED: Naloxone 0.4 MG/ML INJ IVP PRN (10:43)
[2018-01-30] MEDS ORDERED: Dextrose Gel 15 GM/37.5 ML TUBE PO PRN ×2 (10:43)
[2018-01-30] MEDS ORDERED: Ipratropium/Albuterol Neb 3 ML IH PRN (10:43)
[2018-01-30] MEDS ORDERED: *HR* Dextrose 50 % in Water (Syg) 50 ML SYRINGE IVP PRN (10:43)
[2018-01-30] MEDS ORDERED: Acetaminophen 325 MG TABLET PO PRN (10:43)
[2018-01-30] MEDS: Budesonide/Formoterol 160/4.5 1 PUFF INH IH SCH ×2 (11:14→20:22)
[2018-01-30] MEDS: Tiotropium 18 MCG inhalation IH SCH (11:15)
[2018-01-30] MEDS: Insulin DETEMIR 100 UNIT/ML X5UNITS SQ SCH (21:41)
[2018-01-30] MEDS: Gabapentin 300 MG CAPSULE PO SCH (21:42)
--- NOTE | 2018-01-30 22:43 | Internal Med Progress Note ---
Hospitalist Progress Note - Encounter Date of Encounter: 01/30/18 Time of Encounter: 19:00 - Subjective Interval History: SUBJECTIVE: The patient underwent surgery on her right foot today. She did well during and after the surgery. Denies having pain in the right foot. Denies chest pain and difficulty breathing. She makes good amounts of urine. OBJECTIVE: Skin: Free of rash and discoloration. See notes from podiatry describing the diabetic ulcer of seconds right toe. ENMT: Oral/pharyngeal mucosa is normal in appearance. Eyes: Sclera is white. There is no discharge from eyes. Respiratory: Normal breath sounds; no crackles or wheezes. CV: Heart is regular; no gallop or murmur. GI: Abdomen is soft and not tender. There is no palpable mass or visceromegaly. Neuro: There is no focal deficits. ADDITIONAL DATA: Hemoglobin is 10.4 with normal WBC. Platelet count is 436,000. Electrolytes are normal. Creatinine is 0.92. Her fingersticks and her glucose from today were 173, 289 and 253. ASSESSMENT AND PLAN: Osteomyelitis of the second toe (the right foot). The patient underwent amputation of the second toe at the level of the base of proximal phalanx, right foot. See notes from podiatry. The patient is on IV vancomycin. Wound cultures are pending. Type 2 diabetes mellitus with hyperglycemia, diabetic foot ulcer and diabetic neuropathy. To continue Levemir and when necessary Humalog. We will do adjustments, if needed. COPD. Stable/controlled. To continue Spiriva and when necessary inhalations with DuoNeb. Morbid obesity with BMI of 57.8. To consult our rehabilitation aide/scheduler. Disposition: The patient will likely benefit from referral to ECF. - Exam Vitals: Temp Pulse Resp BP Pulse Ox 98.7 F 82 18 156/87 98 01/30/18 19:04 01/30/18 19:04 01/30/18 20:24 01/30/18 19:04 01/30/18 20:24 Exam: xx - Assessment and Plan (1) Acute osteomyelitis of toe of right foot Current Visit: Yes Status: Acute (2) Type 2 diabetes mellitus with hyperglycemia Current Visit: Yes Status: Acute (3) Type 2 diabetes mellitus with foot ulcer Current Visit: Yes Status: Acute (4) Type 2 diabetes mellitus with diabetic neuropathy Current Visit: Yes Status: Acute (5) COPD (chronic obstructive pulmonary disease) Current Visit: Yes Status: Acute (6) Morbid obesity with BMI of 50.0-59.9, adult Current Visit: Yes Status: Chronic - Time Spent with Patient Total time spent is greater than 50% in coordination of care (as documented) at patient's floor/unit and/or counseling patient: 25 - 35 minutes Plan of Care Discussed with: patient Internal Medicine: Result - Labs CBC & Chem 7: 01/29/18 03:59 01/29/18 03:59 Consult Discharge Plan - Plan Additional Instructions: Follow up in office 1 week post discharge. Please make appointment prior to d/c from hospital. Referrals: Dez Oliver DPM [Partnered Physician] - Lia Browne CNP [Primary Care Provider] - (5) COPD (chronic obstructive pulmonary disease) Qualifiers: COPD type: unspecified COPD Qualified Code(s): J44.9 - Chronic obstructive pulmonary disease, unspecified
[2018-01-31] MEDS: traMADol 50 MG TABLET PO PRN ×2 (00:06→23:17)
[2018-01-31] MEDS: *HR* Heparin 5,000 UNIT/ML VIAL SQ SCH ×3 (05:20→22:32)
[2018-01-31] MEDS: Budesonide/Formoterol 160/4.5 1 PUFF INH IH SCH ×2 (07:44→22:21)
[2018-01-31] MEDS: Tiotropium 18 MCG inhalation IH SCH (07:44)
[2018-01-31] MEDS: Insulin LISPRO 300 UNITS/3 ML VIAL SQ SCH ×4 (07:54→22:33)
[2018-01-31] MEDS: Insulin DETEMIR 100 UNIT/ML X5UNITS SQ SCH ×2 (09:36→22:33)
[2018-01-31] MEDS ORDERED: Aminoglycoside Consult 1 EACH MC ONE (11:07)
--- NOTE | 2018-01-31 14:42 | Podiatry Progress Note ---
Date of Encounter: 01/31/18 Time of Encounter: 12:00 - Assessment and Plan (1) Acute osteomyelitis of toe of right foot Current Visit: Yes Status: Acute Assessment: S/P right 2nd toe amputation 01/31/[address] Oliver Incision noted to right 2nd toe, well approximated, no signs of dehiscence noted, no signs of infection noted. Sutures in tact. WBC 8.5 01/30/18 no labs today 01/28/18 ESR > 130, CRP 142 Blood cultures pending, no growth at this time Wound cultures pending, show no growth at this time FORREST prelim-Right PT- 0.93 DP-1.07, Left PT- 1.27 and DP- 1.32. HGB A1C 9.1 Currently on vancomycin. Plan: Covered incision with adaptic, 4x4 dry gauze, and kerlex. Patient to ambulate with CAM boot- ordered. Limitied ambulation- use heel to weight bear. Do not get foot wet. Recommend de-escalation of IV atb. Will most likely need to go home on oral ATB. Follow up with Dr. Oliver outpatient. Make appointment for 1 week post d/c. Subjective Interval history: Patient awake in bed. Alert and oriented x 3. No signs of distress noted. Denies any nausea, fever, chest pain, calf pain, shortness of breath, diarrhea, vomiting, or chills. States surgery went well yesterday. No other questions or concerns at this time. Objective - Vital Signs Vital Signs: Vital Signs Temp Pulse Resp BP Pulse Ox 01/31/18 10:45 98.0 F 76 16 140/82 98 01/31/18 07:44 16 97 01/31/18 06:53 97.6 F 80 16 129/81 97 01/30/18 23:10 98.8 F 80 14 125/79 97 01/30/18 20:24 18 98 01/30/18 19:04 98.7 F 82 12 156/87 100 Intake and Output 01/30/18 01/31/18 01/31/18 23:59 07:59 15:59 Intake Total 240 / 240 250 / 250 240 / 240 Output Total 350 / 350 Balance -110 / -110 250 / 250 240 / 240 Intake: IV Fluids 250 / 250 Vancocin 1,250 MG In 0.9 % 250 / 250 Sodium Chloride 250 ML @ 166.67 mls/hr IVPB Q12H [facility] Rx#: [id number] Oral 240 / 240 240 / 240 Output: Urine 350 / 350 Other: Meal Dinner Breakfast Percent of Meal Consumed 100% 100% # Voids 1 Blood Glucose* 268 252 317 - Exam Exam: Constitiutional: Alert and oriented x 3. Obese female. Vascular: non palpable DP/PT, CFT <3 sec to digits 3-5, 1st hallux partial amputation right foot, right foot 2nd digit amputation incision well approximated, no calf pain with squeeze RLE Neurologic: Diminished sensation to touch, normal plantar response, Abnormal position sense dorsiflexion/plantar flexion Dermatologic: right second toe incision well approximated, no signs of infection noted, no signs of dehiscense noted. sutures noted. minimal erythema and edema noted, expected postoperatively Musculoskeletal: 5/5 muscle strength and normal tone RLE - Lab Result Diagrams: 01/29/18 03:59 01/29/18 03:59 Labs: Abnormal lab results Hgb 10.4 g/dL (11.5-15.4) L 01/29/18 03:59 Hct 32.4 % (35.3-44.9) L 01/29/18 03:59 MCH 27.0 pg (28.0-33.3) L 01/29/18 03:59 Plt Count 436 K/mcL (140-400) H 01/29/18 03:59 Nucleated RBCs/100 WBC 0.2 /100 WBC (0) H 01/29/18 03:59 ESR >= 130 mm/hr (0-15) H 01/28/18 01:27 Glucose 184 mg/dL (70-105) H 01/29/18 03:59 POC Glucose 197 mg/dL (70-99) H 01/30/18 08:16 Hemoglobin A1c 9.1 % (-5.6) H 01/28/18 14:57 C-Reactive Protein 142 mg/L (Less than 10) H 01/28/18 01:27 Vancomycin Trough 23 mcg/mL (5-10) H 01/29/18 21:00 Microbiology, Last 48 Hours 01/28/18 09:30 Wound Culture - Final Second Right Toe No pathogens isolated. Consult Discharge Plan - Plan Additional Instructions: Follow up in office 1 week post discharge. Please make appointment prior to d/c from hospital Wear CAM boot. Limited ambulation, use heel for weight bearing. Do not get foot wet. Leave dressing intact until office visit. Referrals: Dez Oliver DPM [Partnered Physician] - Lia Browne CNP [Primary Care Provider] -
[2018-01-31] MEDS: Gabapentin 300 MG CAPSULE PO SCH (22:31)
--- NOTE | 2018-01-31 23:39 | Internal Med Progress Note ---
Hospitalist Progress Note - Encounter Date of Encounter: 01/31/18 Time of Encounter: 19:00 - Subjective Interval History: SUBJECTIVE: The patient underwent surgery on her right foot yesterday. Denies having pain in the right foot. Denies chest pain and difficulty breathing. She makes good amounts of urine. OBJECTIVE: Skin: Free of rash and discoloration. See notes from podiatry describing the diabetic ulcer of seconds right toe. ENMT: Oral/pharyngeal mucosa is normal in appearance. Eyes: Sclera is white. There is no discharge from eyes. Respiratory: Normal breath sounds; no crackles or wheezes. CV: Heart is regular; no gallop or murmur. GI: Abdomen is soft and not tender. There is no palpable mass or visceromegaly. Neuro: There is no focal deficits. ADDITIONAL DATA: Wound culture and blood cultures are not growing any particular organisms. ASSESSMENT AND PLAN: Osteomyelitis of the second toe (the right foot). The patient underwent a mputation of the second toe at the level of the base of proximal phalanx, right foot. See notes from podiatry. The patient is on IV vancomycin. Wound cultures are pending. Awaiting recommendations from podiatry regarding the discharge. Type 2 diabetes mellitus with hyperglycemia, diabetic foot ulcer and diabetic neuropathy. She is hyperglycemic. To increase the dose of Levemir. COPD. Stable/controlled. To continue Spiriva and when necessary inhalations with DuoNeb. Morbid obesity with BMI of 57.8. To consult our garland maker. Disposition: It looks like she would be discharged home, likely tomorrow. On oral antibiotic. - Exam Vitals: Temp Pulse Resp BP Pulse Ox 98.3 F 81 12 148/80 98 01/31/18 19:44 01/31/18 19:44 01/31/18 22:21 01/31/18 19:44 01/31/18 22:21 Exam: xx - Assessment and Plan (1) Acute osteomyelitis of toe of right foot Current Visit: Yes Status: Acute (2) Type 2 diabetes mellitus with hyperglycemia Current Visit: Yes Status: Acute (3) Type 2 diabetes mellitus with foot ulcer Current Visit: Yes Status: Acute (4) Type 2 diabetes mellitus with diabetic neuropathy Current Visit: Yes Status: Acute (5) COPD (chronic obstructive pulmonary disease) Current Visit: Yes Status: Acute (6) Morbid obesity with BMI of 50.0-59.9, adult Current Visit: Yes Status: Chronic - Time Spent with Patient Total time spent is greater than 50% in coordination of care (as documented) at patient's floor/unit and/or counseling patient: 25 - 35 minutes Plan of Care Discussed with: patient (\\\) Internal Medicine: Result - Labs CBC & Chem 7: 01/29/18 03:59 01/29/18 03:59 Consult Discharge Plan - Plan Additional Instructions: Follow up in office 1 week post discharge. Please make appointment prior to d/c from hospital Wear CAM boot. Limited ambulation, use heel for weight bearing. Do not get foot wet. Leave dressing intact until office visit. Referrals: Dez Oliver DPM [Partnered Physician] - Lia Browne CNP [Primary Care Provider] - (5) COPD (chronic obstructive pulmonary disease) Qualifiers: COPD type: unspecified COPD Qualified Code(s): J44.9 - Chronic obstructive pulmonary disease, unspecified
[2018-02-01] MEDS: *HR* Heparin 5,000 UNIT/ML VIAL SQ SCH (06:08)
[2018-02-01 07:20] VITALS: BP 130/82
[2018-02-01] MEDS: Tiotropium 18 MCG inhalation IH SCH (08:06)
[2018-02-01] MEDS: Budesonide/Formoterol 160/4.5 1 PUFF INH IH SCH (08:08)
[2018-02-01] MEDS: Insulin LISPRO 300 UNITS/3 ML VIAL SQ SCH (09:02)
[2018-02-01] MEDS: Insulin DETEMIR 100 UNIT/ML X5UNITS SQ SCH (09:03)
--- NOTE | 2018-02-01 10:06 | Discharge Summary ---
Orders not resulted at time of discharge: Pending orders 01/28/18 01:27 Culture,Blood [BC] Stat 01/30/18 09:54 Surgical Pathology [PTH] Routine Date of Encounter: 02/01/18 Time of Encounter: 10:05 - Discharge Diagnosis (1) Acute osteomyelitis of toe of right foot Priority: Primary Status: Acute (2) Type 2 diabetes mellitus with hyperglycemia Priority: Secondary Status: Chronic Qualifiers: Diabetes mellitus termite treater insulin use: with termite treater use Qualified Code(s): E11.65 - Type 2 diabetes mellitus with hyperglycemia; Z79.4 - predatory animal exterminator (current) use of insulin (3) Type 2 diabetes mellitus with foot ulcer Priority: Secondary Status: Chronic Qualifiers: Diabetes mellitus mcc insulin use: with termite treater use Qualified Code(s): E11.621 - Type 2 diabetes mellitus with foot ulcer; L97.509 - Non- pressure chronic ulcer of other part of unspecified foot with unspecified severity; Z79.4 - long-term (current) use of insulin (4) Type 2 diabetes mellitus with diabetic neuropathy Priority: Secondary Status: Chronic Qualifiers: Diabetes mellitus mcc insulin use: with termite treater use Qualified Code(s): E11.40 - Type 2 diabetes mellitus with diabetic neuropathy, unspecified; Z79.4 - long-term (current) use of insulin (5) COPD (chronic obstructive pulmonary disease) Priority: Secondary Status: Chronic Qualifiers: COPD type: unspecified COPD Qualified Code(s): J44.9 - Chronic obstructive pulmonary disease, unspecified (6) Morbid obesity with BMI of 50.0-59.9, adult Priority: Secondary Status: Chronic Hospital course: HOSPITAL COURSE: The patient is a 53-year-old diabetic woman with peripheral arterial disease. She has developed a abscess/osteomyelitis of the distal portion of second toe of her right foot. She had incision and drainage done by podiatry in outpatient settings. Then, it was decided that the distal portion of the toe would be amputated. The patient was put on IV vancomycin. Dr. Bergman, podiatry did amputation of the second toe at the level of the base of proximal phalanx, right foot. The surgical wound was healing well. Dr. Bergman decided to send her home on oral Augmentin. Medical service was helping her in managing her diabetes and other medical problems. Listed in the problem list CONDITION AT DISCHARGE: Is good. Right foot pain is minimal. She can ambulate on her own. Denies chest pain and difficulty breathing. Skin: Free of rash and discoloration. Respiratory: Normal breath sounds with no crackles and wheezes bilaterally. CV: Heart is regular with no gallop or murmur. GI: Abdomen is flat and soft with no palpable mass or visceromegaly. Neuro exam: There is no focal deficits. Normal speech, swallowing and gait. SEE DISCHARGE ORDERS/MEDICATIONS.. Follow-up with podiatry in about 1 week after the discharge. Discharge discussed with: patient - Time Spent with Patient Total time spent providing and/or coordinating discharge services: Greater than 30 minutes (40 minutes..) - Discharge Medications Prescriptions: Amoxicillin/Clavulanate [Augmentin] 875 mg PO BIDWM 10 Days #20 tablet Home Medications: Gabapentin [Neurontin] 900 mg PO DAILY 04/04/17 [History] Insulin Glargine [Lantus] 30 unit SQ DAILY 04/04/17 [History] Metformin HCl [Glucophage] 1,000 mg PO BID 04/04/17 [History] Vitamin B Complex [B Complex] 1 each PO DAILY 04/04/17 [History] Albuterol Sulfate [Ventolin Hfa] 2 puff IH Q6H PRN 01/28/18 [History] Furosemide [Lasix] 20 mg PO DAILY 01/28/18 [History] Insulin LISPRO [Humalog Kwikpen U-100] 0 unit SQ TID PRN 01/28/18 [History] Losartan/Hydrochlorothiazide [Hyzaar 100-25 Tablet] 1 tab PO DAILY 01/28/18 [History] Magnesium Oxide [Magnesium] 250 mg PO DAILY 01/28/18 [History] Mometasone/Formoterol [Dulera 100 Mcg/5 Mcg Inhaler] 2 puff IH BID 01/28/18 [History] Turmeric Root Extract [Turmeric] 500 mg PO DAILY 01/28/18 [History] Zolpidem [Ambien] 10 mg PO HS PRN 01/28/18 [History] glipiZIDE [Glucotrol] 5 mg PO BIDWM 01/28/18 [History] Amoxicillin/Clavulanate [Augmentin] 875 mg PO BIDWM 10 Days #20 tablet 02/01/18 [Rx] Allergies/Adverse Reactions: Allergy/AdvReac Type Severity Reaction Status Date / Time No Known Allergies Allergy Verified 04/04/17 09:51 Date of admission: 01/30/18 10:20 Primary care physician: Lia Browne Consults: 01/28/18 08:08 Consult to Podiatry [CONS] Routine Consulting Provider: [facility] Reason for Consult: osteomylitis of right foot distal 2nd toe, Spoke with Dr. Oliver Time Notified: 08:08 Call Completed: Yes Discharging clinician: Bonilla Shipley Anticipated date of discharge: 02/01/18 - Constitutional Vitals: Temp Pulse Resp BP Pulse Ox 98.1 F 80 16 130/82 98 02/01/18 07:06 02/01/18 07:06 02/01/18 07:06 02/01/18 07:06 02/01/18 07:06 General appearance: Present: A&O X 3, answers questions appropriately Exam: xx - Patient Status Disposition: Home, Self-Care Condition: Good Functional capacity at discharge: independent ambulation Overall status at discharge: patient is progressing back to baseline - Discharge Instructions Follow Up With: Dez Oliver DPM [Partnered Physician] - (Web-requested, office will call the patient to schedule a follow up appointment. ) Lia Browne, DORA [Primary Care Provider] - (Web-requested,the office will call the patient to schedule a follow up appointment. ) Additional Instructions: Follow up in office 1 week post discharge. Please make appointment prior to d/c from hospital Wear CAM boot. Limited ambulation, use heel for weight bearing. Do not get foot wet. Leave dressing intact until office visit. - Diet and Activity Activity: resume usual activities as tolerated Diet: diabetic diet - VTE Deep Vein Thrombosis/Pulmonary Embolism Present on Admission: No
== END 2018-02-01 11:08 | disposition home or self-care (01) | DRG 617 ==
LOC: EMEROOARM 23:40 → 3ANU 23:40 → SUATTDRO 01-28 03:01 → 3ANU 01-28 03:11
PROVIDERS: ADMIT Pediatrics; ATTEND Internal Medicine

== ENCOUNTER 2021-01-09 15:45 | Inpatient (IN) ==
[2021-01-09] MEDS ORDERED: Ondansetron ODT 4 MG TAB.RAPDIS SL PRN (22:32)
[2021-01-09] MEDS ORDERED: Naloxone 0.4 MG/ML INJ IVP PRN (22:32)
[2021-01-09] MEDS ORDERED: Melatonin 3 MG TABLET PO PRN (22:32)
[2021-01-10] MEDS ORDERED: *HR* Dextrose 50 % in Water (Syg) 50 ML SYRINGE IVP PRN (00:06)
[2021-01-10] MEDS ORDERED: Dextrose Gel 15 GM/37.5 ML TUBE PO PRN ×2 (00:06)
[2021-01-10] MEDS ORDERED: D5% in Water 1,000 ML IVC PRN (00:06)
[2021-01-10] MEDS ORDERED: Acetaminophen 325 MG TABLET PO PRN (01:09)
[2021-01-10] MEDS ORDERED: Ibuprofen 400 MG TABLET PO PRN (01:18)
[2021-01-10 01:27] LABS: Basophils % 0.1 %; Eosinophils # 0.1 K/mcL (0.0-0.6); Eosinophils % 0.5 %; Hemoglobin 14.6 g/dL (11.5-15.4); Immature Granulocytes % 0.3 % (0-4); Lymphocytes # 2.7 K/mcL (0.6-4.6); Lymphocytes % 19.6 %; Mean Corpuscular HGB Conc 32.4 g/dL (31.6-35.5); Mean Corpuscular Hemoglobin 27.3 pg (28.0-33.3); Mean Corpuscular Volume 84.1 fL (83.0-100.0); Mean Platelet Volume 11.9 fL (9.4-12.4); Monocytes % 7.2 %; Neutrophils # 9.9 K/mcL (1.6-8.9); Platelet Count 362 K/mcL (140-400); Red Blood Count 5.35 M/mcL (3.82-4.97); Segmented Neutrophils % 72.3 %; White Blood Count 13.7 K/mcL (4.3-11.1)
[2021-01-10 01:49] LABS: BUN/Creatinine Ratio 20 (6-26); Blood Urea Nitrogen 25 mg/dL (6-20); Calcium 9.7 mg/dL (8.6-10.3); Carbon Dioxide 22 mEq/L (23-29); Chloride 99 mEq/L (98-107); Chol/HDL Ratio 2.4 (0-4.9); Cholesterol 156 mg/dL (< 200); Glucose 197 mg/dL (70-105); HDL Cholesterol 66 mg/dL (40-59); LDL Cholesterol,Calculated 77 mg/dL (< 100); Osmolality,Calculated 292 (280-300); Potassium 3.8 mEq/L (3.5-5.1); Sodium 136 mEq/L (136-145); Triglycerides 63 mg/dL (< 150); eGFR For African Americans 53 (> 60); eGFR For Non-African Americans 44 (> 60)
[2021-01-10 01:50] LABS: Estimated Average Glucose 206 mg/dl; Hemoglobin A1C 8.8 %; Troponin I < 0.03 ng/mL (< 0.04)
[2021-01-10] MEDS: *HR* Heparin 5,000 UNIT/ML VIAL SQ SCH ×2 (06:09→18:32)
[2021-01-10] MEDS: Insulin LISPRO 300 UNITS/3 ML VIAL SUBQ SCH ×4 (06:09→23:36)
[2021-01-10 08:34] LABS: Adenovirus Not Detected (Not Detect); Coronavirus 229E Not Detected (Not Detect); Coronavirus HKU1 Not Detected (Not Detect); Coronavirus NL63 Not Detected (Not Detect); Coronavirus OC43 Not Detected (Not Detect); SARS-CoV-2 Not Detected (Not Detect)
[2021-01-10 08:35] LABS: Bordetella Pertussis Not Detected (Not Detect); Chlamydophila pneumoniae Not Detected (Not Detect); Human Metapneumovirus Not Detected (Not Detect); Human Rhinovirus/Enterovirus Not Detected (Not Detect); Influenza A Subtype 2009 H1 Not Detected (Not Detect); Influenza B Not Detected (Not Detect); Mycoplasma pneumoniae Not Detected (Not Detect); Parainfluenza Virus 1 Not Detected (Not Detect); Parainfluenza Virus 2 Not Detected (Not Detect); Parainfluenza Virus 3 Not Detected (Not Detect); Parainfluenza Virus 4 Not Detected (Not Detect); Respiratory Syncytial Virus Not Detected (Not Detect)
[2021-01-10] MEDS ORDERED: Immune Glob, Gamma (Privigen) 40 GM/400 ML INFUS..BTL IVC SCH (09:00)
[2021-01-10] MEDS: Immune Glob, Gamma (Gammagard) 30 GM/300 ML INFUS..BTL IVC SCH ×2 (10:40→12:21)
[2021-01-10] MEDS ORDERED: *HR* Metoprolol 5 MG/5 ML VIAL IVP PRN (17:33)
[2021-01-10] MEDS ORDERED: 0.9 % Sodium Chloride 1,000 ML ONE (18:26)
[2021-01-10] MEDS: 0.9 % Sodium Chloride 1,000 ML IVC SCH (19:00)
[2021-01-11 05:01] LABS: Hemoglobin 14.1 g/dL (11.5-15.4); Mean Corpuscular HGB Conc 32.8 g/dL (31.6-35.5); Mean Corpuscular Hemoglobin 27.5 pg (28.0-33.3); Mean Platelet Volume 11.7 fL (9.4-12.4); Platelet Count 326 K/mcL (140-400); Red Blood Count 5.12 M/mcL (3.82-4.97); Red Cell Distribution Width 14.3 % (11.5-14.5)
[2021-01-11 05:19] LABS: Alanine Aminotransferase 14 Units/L (7-52); Albumin 3.4 g/dL (3.5-5.7); Albumin/Globulin Ratio 0.7 (1.1-2.2); Alkaline Phosphatase 57 Units/L (34-104); Aspartate Amino Transferase 15 Units/L (13-39); BUN/Creatinine Ratio 34 (6-26); Bilirubin,Total 0.4 mg/dL (0.3-1.0); Blood Urea Nitrogen 36 mg/dL (6-20); Calcium 9.2 mg/dL (8.6-10.3); Carbon Dioxide 23 mEq/L (23-29); Chloride 102 mEq/L (98-107); Glucose 245 mg/dL (70-105); Osmolality,Calculated 298 (280-300); Potassium 3.8 mEq/L (3.5-5.1); Sodium 136 mEq/L (136-145); Total Protein 8.4 g/dL (6.4-8.9); eGFR For African Americans > 60 (> 60); eGFR For Non-African Americans 54 (> 60)
[2021-01-11] MEDS: *HR* Heparin 5,000 UNIT/ML VIAL SQ SCH ×2 (05:33→18:55)
[2021-01-11] MEDS: Insulin LISPRO 300 UNITS/3 ML VIAL SUBQ SCH ×4 (05:33→23:49)
[2021-01-11] MEDS: 0.9 % Sodium Chloride 1,000 ML IVC SCH (07:25)
[2021-01-11] MEDS: Immune Glob, Gamma (Gammagard) 30 GM/300 ML INFUS..BTL IVC SCH ×2 (09:57→11:52)
[2021-01-11 19:14] LABS: Appearance,CSF Clear (Clear); Red Blood Cell,CSF < 2000 RBC/mcL
[2021-01-11 19:17] LABS: Glucose,CSF 156 mg/dL (40-70); Total Protein,CSF 85 mg/dL (15-45)
[2021-01-12] MEDS: *HR* Heparin 5,000 UNIT/ML VIAL SQ SCH ×2 (05:03→18:20)
[2021-01-12 05:20] LABS: Hematocrit 43.3 % (35.3-44.9); Mean Corpuscular HGB Conc 32.3 g/dL (31.6-35.5); Mean Corpuscular Hemoglobin 27.8 pg (28.0-33.3); Mean Corpuscular Volume 86.1 fL (83.0-100.0); Mean Platelet Volume 11.6 fL (9.4-12.4); Platelet Count 309 K/mcL (140-400); Red Blood Count 5.03 M/mcL (3.82-4.97); Red Cell Distribution Width 14.7 % (11.5-14.5); White Blood Count 10.6 K/mcL (4.3-11.1)
[2021-01-12] MEDS: Insulin LISPRO 300 UNITS/3 ML VIAL SUBQ SCH ×4 (05:22→18:19)
[2021-01-12 05:37] LABS: Alanine Aminotransferase 15 Units/L (7-52); Albumin 3.3 g/dL (3.5-5.7); Albumin/Globulin Ratio 0.6 (1.1-2.2); Alkaline Phosphatase 55 Units/L (34-104); Aspartate Amino Transferase 16 Units/L (13-39); BUN/Creatinine Ratio 39 (6-26); Bilirubin,Total 0.4 mg/dL (0.3-1.0); Blood Urea Nitrogen 40 mg/dL (6-20); Carbon Dioxide 25 mEq/L (23-29); Chloride 104 mEq/L (98-107); Glucose 292 mg/dL (70-105); Osmolality,Calculated 303 (280-300); Sodium 136 mEq/L (136-145); Total Protein 9.3 g/dL (6.4-8.9); eGFR For African Americans > 60 (> 60); eGFR For Non-African Americans 55 (> 60)
[2021-01-12] MEDS: Immune Glob, Gamma (Gammagard) 30 GM/300 ML INFUS..BTL IVC SCH ×2 (09:25→11:19)
[2021-01-12] MEDS ORDERED: Melatonin 3 MG TABLET PO PRN (11:39)
[2021-01-12] MEDS ORDERED: NON-FORMULARY MEDICATION 1 EACH EACH (Albuterol Sulfate 18 GM Hfa.Aer.Ad) IH PRN (11:39)
[2021-01-12] MEDS ORDERED: Acetaminophen 325 MG TABLET PO PRN (11:39)
[2021-01-12] MEDS ORDERED: *HR* Metoprolol 5 MG/5 ML VIAL IVP PRN (11:39)
[2021-01-12] MEDS ORDERED: Naloxone 0.4 MG/ML INJ IVP PRN (11:39)
[2021-01-12] MEDS ORDERED: D5% in Water 1,000 ML IVC PRN (11:39)
[2021-01-12] MEDS ORDERED: Ondansetron ODT 4 MG TAB.RAPDIS SL PRN (11:39)
[2021-01-12] MEDS ORDERED: *HR* Dextrose 50 % in Water (Syg) 50 ML SYRINGE IVP PRN (11:39)
[2021-01-12] MEDS ORDERED: Ibuprofen 400 MG TABLET PO PRN (11:39)
[2021-01-12] MEDS ORDERED: Dextrose Gel 15 GM/37.5 ML TUBE PO PRN ×2 (11:39)
[2021-01-12] MEDS ORDERED: E-Z-HD (BARIUM SULF) SUSPENSION PO ONE (14:41)
[2021-01-12] MEDS ORDERED: E-Z-PAQUE (BARIUM SULF) SUSP 1 BOTTLE PO ONE (14:41)
[2021-01-13] MEDS: Insulin LISPRO 300 UNITS/3 ML VIAL SUBQ SCH ×4 (02:26→19:53)
[2021-01-13 04:42] LABS: Hematocrit 43.6 % (35.3-44.9); Hemoglobin 13.8 g/dL (11.5-15.4); Mean Corpuscular HGB Conc 31.7 g/dL (31.6-35.5); Mean Corpuscular Hemoglobin 27.5 pg (28.0-33.3); Mean Platelet Volume 12.1 fL (9.4-12.4); Platelet Count 289 K/mcL (140-400); Red Blood Count 5.01 M/mcL (3.82-4.97); Red Cell Distribution Width 15.1 % (11.5-14.5); White Blood Count 10.1 K/mcL (4.3-11.1)
[2021-01-13 04:48] LABS: Alanine Aminotransferase 14 Units/L (7-52); Albumin/Globulin Ratio 0.5 (1.1-2.2); Alkaline Phosphatase 52 Units/L (34-104); Aspartate Amino Transferase 16 Units/L (13-39); BUN/Creatinine Ratio 45 (6-26); Bilirubin,Total 0.5 mg/dL (0.3-1.0); Blood Urea Nitrogen 50 mg/dL (6-20); Carbon Dioxide 28 mEq/L (23-29); Chloride 104 mEq/L (98-107); Globulin 6.5 g/dL (2.4-3.5); Glucose 306 mg/dL (70-105); Osmolality,Calculated 311 (280-300); Potassium 4.3 mEq/L (3.5-5.1); Sodium 138 mEq/L (136-145); Total Protein 9.5 g/dL (6.4-8.9); eGFR For African Americans > 60 (> 60); eGFR For Non-African Americans 51 (> 60)
[2021-01-13] MEDS: *HR* Heparin 5,000 UNIT/ML VIAL SQ SCH ×2 (05:39→17:06)
[2021-01-13] MEDS ORDERED: 0.9 % Sodium Chloride 1,000 ML IVC SCH ×2 (08:00→10:39)
[2021-01-13] MEDS ORDERED: Immune Glob, Gamma (Gammagard) 30 GM/300 ML INFUS..BTL IVC SCH ×2 (10:00→11:30)
[2021-01-13] MEDS ORDERED: *HR* Dextrose 50 % in Water (Syg) 50 ML SYRINGE IVP PRN (10:39)
[2021-01-13] MEDS ORDERED: D5% in Water 1,000 ML IVC PRN (10:39)
[2021-01-13] MEDS ORDERED: Ibuprofen 400 MG TABLET PO PRN (10:39)
[2021-01-13] MEDS ORDERED: Naloxone 0.4 MG/ML INJ IVP PRN (10:39)
[2021-01-13] MEDS ORDERED: Ondansetron ODT 4 MG TAB.RAPDIS SL PRN (10:39)
[2021-01-13] MEDS ORDERED: *HR* Metoprolol 5 MG/5 ML VIAL IVP PRN (10:39)
[2021-01-13] MEDS ORDERED: Dextrose Gel 15 GM/37.5 ML TUBE PO PRN ×2 (10:39)
[2021-01-13] MEDS ORDERED: Acetaminophen 325 MG TABLET PO PRN (10:39)
[2021-01-13] MEDS: Immune Glob, Gamma (Gammagard) 30 GM/300 ML INFUS..BTL IVC SCH (11:54)
[2021-01-13] MEDS ORDERED: Insulin LISPRO 300 UNITS/3 ML VIAL SUBQ SCH (12:00)
[2021-01-14 03:21] LABS: Hemoglobin 14.8 g/dL (11.5-15.4); Mean Corpuscular HGB Conc 32.2 g/dL (31.6-35.5); Mean Platelet Volume 12.8 fL (9.4-12.4); Platelet Count 229 K/mcL (140-400); Red Blood Count 5.29 M/mcL (3.82-4.97); Red Cell Distribution Width 15.1 % (11.5-14.5)
[2021-01-14 03:29] LABS: Alanine Aminotransferase 17 Units/L (7-52); Albumin 2.7 g/dL (3.5-5.7); Albumin/Globulin Ratio 0.4 (1.1-2.2); Alkaline Phosphatase 44 Units/L (34-104); Aspartate Amino Transferase 22 Units/L (13-39); BUN/Creatinine Ratio 47 (6-26); Bilirubin,Total 0.7 mg/dL (0.3-1.0); Blood Urea Nitrogen 48 mg/dL (6-20); Calcium 8.8 mg/dL (8.6-10.3); Carbon Dioxide 28 mEq/L (23-29); Chloride 102 mEq/L (98-107); Globulin 7.1 g/dL (2.4-3.5); Glucose 252 mg/dL (70-105); Osmolality,Calculated 301 (280-300); Potassium 4.9 mEq/L (3.5-5.1); Sodium 135 mEq/L (136-145); Total Protein 9.8 g/dL (6.4-8.9); eGFR For African Americans > 60 (> 60); eGFR For Non-African Americans 55 (> 60)
[2021-01-14] MEDS: *HR* Heparin 5,000 UNIT/ML VIAL SQ SCH ×2 (04:14→15:52)
[2021-01-14 07:07] LABS: Borrelia burgdorferi Abs CSF 0.54 LIV (<=0.99)
[2021-01-14] MEDS: Insulin LISPRO 300 UNITS/3 ML VIAL SUBQ SCH ×4 (08:52→22:04)
[2021-01-14] MEDS ORDERED: Immune Glob, Gamma (Gammagard) 30 GM/300 ML INFUS..BTL IVC SCH (10:00)
[2021-01-14] MEDS: Immune Glob, Gamma (Gammagard) 30 GM/300 ML INFUS..BTL IVC SCH (13:00)
[2021-01-15] MEDS: *HR* Heparin 5,000 UNIT/ML VIAL SQ SCH ×2 (05:42→17:37)
[2021-01-15 05:47] LABS: Alanine Aminotransferase 17 Units/L (7-52); Albumin 2.7 g/dL (3.5-5.7); Albumin/Globulin Ratio 0.4 (1.1-2.2); Alkaline Phosphatase 44 Units/L (34-104); Aspartate Amino Transferase 23 Units/L (13-39); BUN/Creatinine Ratio 49 (6-26); Bilirubin,Total 0.8 mg/dL (0.3-1.0); Blood Urea Nitrogen 52 mg/dL (6-20); Calcium 8.7 mg/dL (8.6-10.3); Carbon Dioxide 30 mEq/L (23-29); Chloride 102 mEq/L (98-107); Globulin 7.1 g/dL (2.4-3.5); Glucose 288 mg/dL (70-105); Osmolality,Calculated 305 (280-300); Potassium 4.4 mEq/L (3.5-5.1); Sodium 135 mEq/L (136-145); Total Protein 9.8 g/dL (6.4-8.9); eGFR For African Americans > 60 (> 60); eGFR For Non-African Americans 53 (> 60)
[2021-01-15 07:04] LABS: Red Cell Distribution Width 15.4 % (11.5-14.5)
[2021-01-15 07:20] LABS: Immature Platelets 8.3 % (1.1-6.1); Red Blood Count 4.41 M/mcL (3.82-4.97)
[2021-01-15 07:23] LABS: Hematocrit 38.7 % (35.3-44.9); Hemoglobin 12.3 g/dL (11.5-15.4); Mean Corpuscular HGB Conc 31.8 g/dL (31.6-35.5); Mean Corpuscular Hemoglobin 27.9 pg (28.0-33.3); Mean Corpuscular Volume 87.8 fL (83.0-100.0); Mean Platelet Volume 12.9 fL (9.4-12.4)
[2021-01-15] MEDS: Insulin LISPRO 300 UNITS/3 ML VIAL SUBQ SCH ×4 (08:12→20:44)
[2021-01-16] MEDS: *HR* Heparin 5,000 UNIT/ML VIAL SQ SCH ×2 (05:36→16:47)
[2021-01-16] MEDS: Insulin LISPRO 300 UNITS/3 ML VIAL SUBQ SCH ×3 (08:53→16:47)
[2021-01-16] MEDS: Melatonin 3 MG TABLET PO PRN (22:14)
[2021-01-16] MEDS: Insulin DETEMIR 100 UNIT/ML X5UNITS SUBQ SCH (22:14)
[2021-01-17 06:03] LABS: Basophils % 0.2 %; Eosinophils % 0.1 %; Hematocrit 36.7 % (35.3-44.9); Hemoglobin 11.7 g/dL (11.5-15.4); Immature Granulocytes % 0.2 % (0-4); Lymphocytes # 1.4 K/mcL (0.6-4.6); Lymphocytes % 14.9 %; Mean Corpuscular HGB Conc 31.9 g/dL (31.6-35.5); Mean Corpuscular Hemoglobin 28.1 pg (28.0-33.3); Mean Platelet Volume 12.5 fL (9.4-12.4); Monocytes % 10.1 %; Nucleated Red Blood Cells 0.3 /100 WBC (0); Platelet Count 268 K/mcL (140-400); Red Blood Count 4.17 M/mcL (3.82-4.97); Red Cell Distribution Width 15.4 % (11.5-14.5); Segmented Neutrophils % 74.5 %; White Blood Count 9.4 K/mcL (4.3-11.1)
[2021-01-17] MEDS: *HR* Heparin 5,000 UNIT/ML VIAL SQ SCH ×2 (06:05→17:13)
[2021-01-17] MEDS: Insulin LISPRO 300 UNITS/3 ML VIAL SUBQ SCH ×5 (06:07→20:39)
[2021-01-17 06:48] LABS: BUN/Creatinine Ratio 44 (6-26); Blood Urea Nitrogen 40 mg/dL (6-20); Calcium 8.9 mg/dL (8.6-10.3); Carbon Dioxide 29 mEq/L (23-29); Chloride 98 mEq/L (98-107); Glucose 250 mg/dL (70-105); Osmolality,Calculated 294 (280-300); Phosphorous 3.1 mg/dL (2.7-4.5); Potassium 4.8 mEq/L (3.5-5.1); Sodium 133 mEq/L (136-145); eGFR For African Americans > 60 (> 60); eGFR For Non-African Americans > 60 (> 60)
[2021-01-17] MEDS: Saline Nasal Spray 44 ML BOTTLE NS PRN (12:36)
[2021-01-17] MEDS: Fluticasone Propionate Nasal 50 MCG/SPRAY BOTTLE NS SCH (12:36)
[2021-01-17] MEDS: Insulin DETEMIR 100 UNIT/ML X5UNITS SUBQ SCH (20:40)
[2021-01-18] MEDS: Saline Nasal Spray 44 ML BOTTLE NS PRN (02:02)
[2021-01-18 02:52] LABS: Basophils % 0.3 %; Eosinophils % 0.1 %; Hematocrit 34.7 % (35.3-44.9); Hemoglobin 11.2 g/dL (11.5-15.4); Immature Granulocytes % 0.3 % (0-4); Lymphocytes # 1.6 K/mcL (0.6-4.6); Lymphocytes % 18.3 %; Mean Corpuscular HGB Conc 32.3 g/dL (31.6-35.5); Mean Corpuscular Hemoglobin 28.4 pg (28.0-33.3); Mean Corpuscular Volume 88.1 fL (83.0-100.0); Mean Platelet Volume 12.5 fL (9.4-12.4); Monocytes % 11.3 %; Neutrophils # 6.1 K/mcL (1.6-8.9); Nucleated Red Blood Cells 0.3 /100 WBC (0); Platelet Count 281 K/mcL (140-400); Red Blood Count 3.94 M/mcL (3.82-4.97); Red Cell Distribution Width 15.5 % (11.5-14.5); Segmented Neutrophils % 69.7 %; White Blood Count 8.8 K/mcL (4.3-11.1)
[2021-01-18 02:55] LABS: Blood Urea Nitrogen 41 mg/dL (6-20); Carbon Dioxide 30 mEq/L (23-29); Chloride 97 mEq/L (98-107); Glucose 298 mg/dL (70-105); Magnesium 2.1 mg/dL (1.6-2.6); Osmolality,Calculated 295 (280-300); Potassium 4.5 mEq/L (3.5-5.1); Sodium 132 mEq/L (136-145)
[2021-01-18 03:41] LABS: BUN/Creatinine Ratio 49 (6-26); eGFR For African Americans > 60 (> 60); eGFR For Non-African Americans > 60 (> 60)
[2021-01-18] MEDS: *HR* Heparin 5,000 UNIT/ML VIAL SQ SCH ×2 (05:05→18:33)
[2021-01-18] MEDS: Insulin LISPRO 300 UNITS/3 ML VIAL SUBQ SCH ×4 (08:25→20:22)
[2021-01-18] MEDS: Fluticasone Propionate Nasal 50 MCG/SPRAY BOTTLE NS SCH (08:28)
[2021-01-18 17:34] LABS: Adenovirus Not Detected (Not Detect); Bordetella Pertussis Not Detected (Not Detect); Chlamydophila pneumoniae Not Detected (Not Detect); Coronavirus 229E Not Detected (Not Detect); Coronavirus HKU1 Not Detected (Not Detect); Coronavirus NL63 Not Detected (Not Detect); Coronavirus OC43 Not Detected (Not Detect); Human Metapneumovirus Not Detected (Not Detect); Human Rhinovirus/Enterovirus Not Detected (Not Detect); Influenza A Subtype 2009 H1 Not Detected (Not Detect); Influenza B Not Detected (Not Detect); Mycoplasma pneumoniae Not Detected (Not Detect); Parainfluenza Virus 1 Not Detected (Not Detect); Parainfluenza Virus 2 Not Detected (Not Detect); Parainfluenza Virus 3 Not Detected (Not Detect); Parainfluenza Virus 4 Not Detected (Not Detect); Respiratory Syncytial Virus Not Detected (Not Detect); SARS-CoV-2 Not Detected (Not Detect)
[2021-01-18] MEDS: Melatonin 3 MG TABLET PO PRN (20:21)
[2021-01-18] MEDS: Budesonide/Formoterol 160/4.5 1 PUFF INH IH SCH (20:36)
[2021-01-18] MEDS ORDERED: Gabapentin 300 MG CAPSULE PO SCH (21:00)
[2021-01-18] MEDS ORDERED: Insulin DETEMIR 100 UNIT/ML X5UNITS SUBQ SCH (21:00)
[2021-01-19] MEDS: *HR* Heparin 5,000 UNIT/ML VIAL SQ SCH (04:52)
[2021-01-19 05:06] LABS: Basophils % 0.3 %; Eosinophils % 0.3 %; Hemoglobin 11.5 g/dL (11.5-15.4); Immature Granulocytes % 0.4 % (0-4); Lymphocytes # 1.8 K/mcL (0.6-4.6); Lymphocytes % 23.4 %; Mean Corpuscular HGB Conc 31.9 g/dL (31.6-35.5); Mean Corpuscular Hemoglobin 28.1 pg (28.0-33.3); Mean Platelet Volume 12.7 fL (9.4-12.4); Monocytes % 13.4 %; Neutrophils # 4.9 K/mcL (1.6-8.9); Nucleated Red Blood Cells 0.3 /100 WBC (0); Platelet Count 244 K/mcL (140-400); Red Blood Count 4.09 M/mcL (3.82-4.97); Red Cell Distribution Width 15.9 % (11.5-14.5); Segmented Neutrophils % 62.2 %; White Blood Count 7.8 K/mcL (4.3-11.1)
[2021-01-19 05:13] LABS: BUN/Creatinine Ratio 40 (6-26); Blood Urea Nitrogen 37 mg/dL (6-20); Calcium 8.9 mg/dL (8.6-10.3); Carbon Dioxide 33 mEq/L (23-29); Chloride 97 mEq/L (98-107); Glucose 266 mg/dL (70-105); Osmolality,Calculated 294 (280-300); Phosphorous 3.6 mg/dL (2.7-4.5); Potassium 4.9 mEq/L (3.5-5.1); Sodium 133 mEq/L (136-145); eGFR For African Americans > 60 (> 60); eGFR For Non-African Americans > 60 (> 60)
[2021-01-19] MEDS: Fluticasone Propionate Nasal 50 MCG/SPRAY BOTTLE NS SCH (07:56)
[2021-01-19] MEDS: Insulin LISPRO 300 UNITS/3 ML VIAL SUBQ SCH ×2 (07:57→11:53)
[2021-01-19] MEDS: Budesonide/Formoterol 160/4.5 1 PUFF INH IH SCH (11:12)
[2021-01-19 11:45] VITALS: BP 96/63; PULSE 75; TEMP 98.1; O2SAT 90
== END 2021-01-19 13:21 | DRG 95 ==
LOC: 3BNU → SUATTDRO 21:39 → ICNU 01-10 14:48 → SUATTDRO 01-10 17:12 → 2NNU 01-13 14:46 → 3ANU 01-14 17:46
PROVIDERS: ADMIT Student in an Organized Health Care Education/Training Program; ATTEND Hospitalist

== ENCOUNTER 2021-01-26 20:51 | Inpatient (IN) ==
[2021-01-26] MEDS ORDERED: Naloxone 0.4 MG/ML INJ IVP PRN (22:23)
[2021-01-26] MEDS ORDERED: Dextrose Gel 15 GM/37.5 ML TUBE PO PRN ×2 (22:31)
[2021-01-26] MEDS ORDERED: D5% in Water 1,000 ML IVC PRN (22:31)
[2021-01-26] MEDS ORDERED: *HR* Dextrose 50 % in Water (Syg) 50 ML SYRINGE IVP PRN (22:31)
[2021-01-26] MEDS ORDERED: 0.9 % Sodium Chloride 250 ML IVC SCH (22:45)
[2021-01-26] MEDS ORDERED: Vancomycin (wt based) 1,000 MG VIAL IVPB SCH (23:00)
[2021-01-27] MEDS ORDERED: Vancomycin 2,000 MG/520 ML IV.SOLN IVPB ONE (00:01)
[2021-01-27] MEDS: Insulin LISPRO 300 UNITS/3 ML VIAL SUBQ SCH ×4 (00:36→18:28)
[2021-01-27] MEDS: Piperacillin/Tazobactam 3.375 GM in 0.9 % Sodium Chloride Mini Bag 100 ML IVPB SCH ×3 (00:36→19:13)
[2021-01-27 01:30] LABS: Basophils % 0.1 %; Hematocrit 20.2 % (35.3-44.9); Hemoglobin 6.2 g/dL (11.5-15.4); Immature Granulocytes % 0.9 % (0-4); Immature Reticulocyte % 51.1 % (11.0-38.0); Lymphocytes # 1.5 K/mcL (0.6-4.6); Lymphocytes % 8.9 %; Mean Corpuscular HGB Conc 30.7 g/dL (31.6-35.5); Mean Corpuscular Hemoglobin 29.2 pg (28.0-33.3); Mean Platelet Volume 11.9 fL (9.4-12.4); Monocytes # 0.7 K/mcL (0.0-1.3); Monocytes % 4.3 %; Neutrophils # 14.7 K/mcL (1.6-8.9); Nucleated Red Blood Cells 1.4 /100 WBC (0); Platelet Count 319 K/mcL (140-400); Red Blood Count 2.12 M/mcL (3.82-4.97); Red Cell Distribution Width 17.6 % (11.5-14.5); Retculocyte # 0.19 M/mcL (0.05-0.10); Reticulocyte % 8.6 % (1.6-2.8); Segmented Neutrophils % 85.8 %; White Blood Count 17.2 K/mcL (4.3-11.1)
[2021-01-27 01:31] LABS: Mean Corpuscular Volume 95.3 fL (83.0-100.0)
[2021-01-27 01:39] LABS: Fibrinogen 368 mg/dL (169-393); INR 1.2; Prothrombin Time 13.3 Seconds (9.4-12.1)
[2021-01-27 01:41] LABS: Activated Partial Thrombo Time 33.6 Seconds (26.0-36.0); D-Dimer 488 ng/mLFEU (0-500)
[2021-01-27 01:45] LABS: Albumin 2.3 g/dL (3.5-5.7); Albumin/Globulin Ratio 0.7 (1.1-2.2); Bilirubin,Indirect 0.2 mg/dL (0.0-1.0); Bilirubin,Total 0.2 mg/dL (0.3-1.0); Calcium 7.6 mg/dL (8.6-10.3); Globulin 3.2 g/dL (2.4-3.5); Iron 88 mcg/dL (50-170); Magnesium 1.8 mg/dL (1.6-2.6); Potassium 5.1 mEq/L (3.5-5.1); Total Protein 5.5 g/dL (6.4-8.9)
[2021-01-27 02:04] LABS: Ferritin 342 ng/mL (10-120)
[2021-01-27] MEDS: 0.9 % Sodium Chloride 1,000 ML IVC SCH ×2 (04:36→19:13)
[2021-01-27] MEDS ORDERED: Pantoprazole 40 MG VIAL IVP SCH (07:00)
[2021-01-27] MEDS ORDERED: 0.9 % Sodium Chloride 250 ML IVC SCH (07:15)
[2021-01-27 09:56] LABS: Hematocrit 21.3 % (35.3-44.9); Hemoglobin 6.6 g/dL (11.5-15.4)
[2021-01-27 09:57] LABS: Bilirubin,Urine Negative (Negative); Blood,Urine Negative (Negative); Clarity,Urine Clear (Clear); Color,Urine Light-Yellow (Yellow); Glucose,Urine (UA) Normal (Normal); Hyaline Casts,Urine Few per lpf (None Seen); Ketones,Urine Negative (Negative); Leukocyte Esterase,Urine Moderate (Negative); Mucus,Urine Few per lpf (None-Few); Nitrite,Urine Negative (Negative); PH,Urine 5.5 pH Units (5.0-8.0); Protein,Urine Negative (Neg-Trace); RBC,Urine 0-3 per hpf (0-3); Specific Gravity,Urine 1.021 (1.010-1.025); Squamous Epithelial Cell,Urine Few per hpf (None-Few); Transitional Epi Cells,Urine Few per hpf (None-Few); Urobilinogen,Urine Normal (Normal)
[2021-01-27] MEDS ORDERED: Lidocaine -MPF 2% 5 ML VIAL ONE (10:33)
[2021-01-27] MEDS ORDERED: *HR* Succinylcholine 200 MG/10 ML VIAL IVP ONE (10:33)
[2021-01-27] MEDS ORDERED: *HR* Propofol 200 MG/20 ML VIAL IVP ONE ×2 (10:34→11:33)
[2021-01-27] MEDS ORDERED: *HR* Rocuronium Bromide 50 MG/5 ML VIAL ONE (10:36)
[2021-01-27 10:39] LABS: Adenovirus Not Detected (Not Detect); Bordetella Pertussis Not Detected (Not Detect); Chlamydophila pneumoniae Not Detected (Not Detect); Coronavirus 229E Not Detected (Not Detect); Coronavirus HKU1 Not Detected (Not Detect); Coronavirus NL63 Not Detected (Not Detect); Coronavirus OC43 Not Detected (Not Detect); Human Metapneumovirus Not Detected (Not Detect); Human Rhinovirus/Enterovirus Not Detected (Not Detect); Influenza A Subtype 2009 H1 Not Detected (Not Detect); Influenza B Not Detected (Not Detect); Mycoplasma pneumoniae Not Detected (Not Detect); Parainfluenza Virus 1 Not Detected (Not Detect); Parainfluenza Virus 2 Not Detected (Not Detect); Parainfluenza Virus 3 Not Detected (Not Detect); Parainfluenza Virus 4 Not Detected (Not Detect); Respiratory Syncytial Virus Not Detected (Not Detect); SARS-CoV-2 Not Detected (Not Detect)
[2021-01-27] MEDS ORDERED: Vancomycin 1,750 MG/517.5 ML IV.SOLN IVPB SCH (12:00)
[2021-01-27] MEDS ORDERED: Insulin LISPRO 300 UNITS/3 ML VIAL SUBQ SCH (12:09)
[2021-01-27] MEDS: Sucralfate 1 GM TABLET PO SCH ×3 (12:20→22:47)
[2021-01-27 15:06] LABS: Creatinine,Urine 77 mg/dL
[2021-01-27] MEDS ORDERED: *HR* Dextrose 50 % in Water (Syg) 50 ML SYRINGE IVP PRN (17:38)
[2021-01-27] MEDS ORDERED: D5% in Water 1,000 ML IVC PRN (17:38)
[2021-01-27] MEDS ORDERED: Dextrose Gel 15 GM/37.5 ML TUBE PO PRN ×2 (17:38)
[2021-01-27] MEDS ORDERED: Naloxone 0.4 MG/ML INJ IVP PRN (17:38)
[2021-01-27] MEDS: Pantoprazole 40 MG VIAL IVP SCH (18:08)
[2021-01-27 18:51] LABS: Hematocrit 24.8 % (35.3-44.9); Hemoglobin 7.8 g/dL (11.5-15.4)
[2021-01-27] MEDS: Budesonide/Formoterol 80/4.5 1 PUFF INH IH SCH (22:19)
[2021-01-28] MEDS ORDERED: Vancomycin 1,750 MG/517.5 ML IV.SOLN IVPB SCH
[2021-01-28] MEDS: Insulin LISPRO 300 UNITS/3 ML VIAL SUBQ SCH ×4 (00:15→18:06)
[2021-01-28] MEDS: Piperacillin/Tazobactam 3.375 GM in 0.9 % Sodium Chloride Mini Bag 100 ML IVPB SCH ×3 (00:15→15:55)
[2021-01-28 00:45] LABS: Hematocrit 23.1 % (35.3-44.9); Hemoglobin 7.4 g/dL (11.5-15.4)
[2021-01-28] MEDS ORDERED: Vancomycin 1,500 MG/265 ML IV.SOLN IVPB SCH (06:00)
[2021-01-28] MEDS: Pantoprazole 40 MG VIAL IVP SCH ×2 (06:52→18:05)
[2021-01-28 07:32] LABS: Basophils % 0.2 %; Hemoglobin 7.4 g/dL (11.5-15.4); Immature Granulocytes % 0.8 % (0-4); Lymphocytes % 9.9 %; Mean Corpuscular HGB Conc 30.8 g/dL (31.6-35.5); Mean Corpuscular Hemoglobin 28.6 pg (28.0-33.3); Mean Corpuscular Volume 92.7 fL (83.0-100.0); Mean Platelet Volume 11.2 fL (9.4-12.4); Monocytes % 5.1 %; Neutrophils # 16.7 K/mcL (1.6-8.9); Platelet Count 319 K/mcL (140-400); Red Blood Count 2.59 M/mcL (3.82-4.97); Red Cell Distribution Width 21.2 % (11.5-14.5); White Blood Count 19.8 K/mcL (4.3-11.1)
[2021-01-28] MEDS: Cholecalciferol (D-3) 1,000 UNIT (25MCG) TABLET PO SCH (07:55)
[2021-01-28] MEDS: Sucralfate 1 GM TABLET PO SCH ×4 (07:55→19:50)
[2021-01-28] MEDS: Budesonide/Formoterol 80/4.5 1 PUFF INH IH SCH ×2 (09:59→21:02)
[2021-01-28 14:13] LABS: Hematocrit 22.7 % (35.3-44.9); Hemoglobin 7.1 g/dL (11.5-15.4)
[2021-01-28] MEDS: Gabapentin 300 MG CAPSULE PO SCH (19:50)
[2021-01-28] MEDS ORDERED: Insulin DETEMIR 100 UNIT/ML X5UNITS SUBQ SCH (21:00)
[2021-01-28 21:50] LABS: Hematocrit 21.4 % (35.3-44.9); Hemoglobin 6.6 g/dL (11.5-15.4)
[2021-01-28] MEDS ORDERED: 0.9 % Sodium Chloride 250 ML ONE (22:30)
[2021-01-29] MEDS: Piperacillin/Tazobactam 3.375 GM in 0.9 % Sodium Chloride Mini Bag 100 ML IVPB SCH ×3 (00:09→16:16)
[2021-01-29 00:40] LABS: Hematocrit 22.3 % (35.3-44.9); Hemoglobin 6.8 g/dL (11.5-15.4)
[2021-01-29] MEDS: Insulin LISPRO 300 UNITS/3 ML VIAL SUBQ SCH ×4 (01:07→19:23)
[2021-01-29 02:26] LABS: Basophils % 0.1 %; Eosinophils % 0.1 %; Hematocrit 22.8 % (35.3-44.9); Hemoglobin 6.8 g/dL (11.5-15.4); Immature Granulocytes % 0.9 % (0-4); Lymphocytes # 1.9 K/mcL (0.6-4.6); Lymphocytes % 12.6 %; Mean Corpuscular HGB Conc 29.8 g/dL (31.6-35.5); Mean Corpuscular Hemoglobin 28.7 pg (28.0-33.3); Mean Corpuscular Volume 96.2 fL (83.0-100.0); Mean Platelet Volume 10.6 fL (9.4-12.4); Monocytes # 0.8 K/mcL (0.0-1.3); Monocytes % 5.3 %; Nucleated Red Blood Cells 1.6 /100 WBC (0); Platelet Count 309 K/mcL (140-400); Red Blood Count 2.37 M/mcL (3.82-4.97); Red Cell Distribution Width 21.9 % (11.5-14.5); White Blood Count 14.8 K/mcL (4.3-11.1)
[2021-01-29 02:42] LABS: BUN/Creatinine Ratio 58 (6-26); Blood Urea Nitrogen 52 mg/dL (6-20); Carbon Dioxide 28 mEq/L (23-29); Chloride 108 mEq/L (98-107); Glucose 225 mg/dL (70-105); Magnesium 2.1 mg/dL (1.6-2.6); Osmolality,Calculated 309 (280-300); Potassium 3.6 mEq/L (3.5-5.1); Sodium 139 mEq/L (136-145); eGFR For African Americans > 60 (> 60); eGFR For Non-African Americans > 60 (> 60)
[2021-01-29] MEDS ORDERED: 0.9 % Sodium Chloride 250 ML ONE (04:59)
[2021-01-29] MEDS: Pantoprazole 40 MG VIAL IVP SCH ×2 (05:48→19:22)
[2021-01-29] MEDS ORDERED: Iron Sucrose Complex 400 MG in 0.9 % Sodium Chloride 250 ML IVPB ONE (07:18)
[2021-01-29] MEDS ORDERED: 0.9 % Sodium Chloride 1,000 ML IVC SCH (07:30)
[2021-01-29] MEDS: Budesonide/Formoterol 80/4.5 1 PUFF INH IH SCH ×2 (07:48→20:30)
[2021-01-29 09:08] LABS: Hematocrit 25.3 % (35.3-44.9); Hemoglobin 7.7 g/dL (11.5-15.4)
[2021-01-29] MEDS: Cholecalciferol (D-3) 1,000 UNIT (25MCG) TABLET PO SCH (09:35)
[2021-01-29] MEDS: Sucralfate 1 GM TABLET PO SCH ×4 (09:42→22:08)
[2021-01-29 10:11] LABS: % Iron Saturation 32 % (15-50); Transferrin 195 mg/dL (200-400)
[2021-01-29] MEDS: Gabapentin 300 MG CAPSULE PO SCH (19:54)
[2021-01-29] MEDS: Insulin DETEMIR 100 UNIT/ML X5UNITS SUBQ SCH (20:15)
[2021-01-30] MEDS: Piperacillin/Tazobactam 3.375 GM in 0.9 % Sodium Chloride Mini Bag 100 ML IVPB SCH ×4 (00:44→23:50)
[2021-01-30] MEDS: Insulin LISPRO 300 UNITS/3 ML VIAL SUBQ SCH ×5 (00:44→20:15)
[2021-01-30] MEDS: Pantoprazole 40 MG VIAL IVP SCH ×2 (06:39→17:01)
[2021-01-30] MEDS: Budesonide/Formoterol 80/4.5 1 PUFF INH IH SCH ×2 (07:38→20:33)
[2021-01-30 07:52] LABS: Hematocrit 23.4 % (35.3-44.9); Hemoglobin 7.1 g/dL (11.5-15.4); Mean Corpuscular HGB Conc 30.3 g/dL (31.6-35.5); Mean Corpuscular Hemoglobin 28.7 pg (28.0-33.3); Mean Corpuscular Volume 94.7 fL (83.0-100.0); Mean Platelet Volume 10.9 fL (9.4-12.4); Platelet Count 281 K/mcL (140-400); Red Blood Count 2.47 M/mcL (3.82-4.97); Red Cell Distribution Width 22.1 % (11.5-14.5)
[2021-01-30 08:10] LABS: BUN/Creatinine Ratio 38 (6-26); Blood Urea Nitrogen 25 mg/dL (6-20); Calcium 7.8 mg/dL (8.6-10.3); Carbon Dioxide 31 mEq/L (23-29); Chloride 103 mEq/L (98-107); Glucose 138 mg/dL (70-105); Osmolality,Calculated 289 (280-300); Potassium 3.3 mEq/L (3.5-5.1); Sodium 136 mEq/L (136-145); eGFR For African Americans > 60 (> 60); eGFR For Non-African Americans > 60 (> 60)
[2021-01-30] MEDS: Furosemide 20 MG/2 ML VIAL IVP SCH (09:28)
[2021-01-30] MEDS: Cholecalciferol (D-3) 1,000 UNIT (25MCG) TABLET PO SCH (09:28)
[2021-01-30] MEDS: Sucralfate 1 GM TABLET PO SCH ×4 (09:28→20:14)
[2021-01-30] MEDS: *HR* OxyCODONE/APAP 5/325 TABLET PO PRN (10:59)
[2021-01-30] MEDS ORDERED: 0.9 % Sodium Chloride 250 ML ONE (14:59)
[2021-01-30] MEDS: Gabapentin 300 MG CAPSULE PO SCH (20:14)
[2021-01-30] MEDS: Insulin DETEMIR 100 UNIT/ML X5UNITS SUBQ SCH (20:15)
[2021-01-31 02:14] LABS: Adenovirus F 40/41 PCR Not detected (Not detect); Astrovirus PCR Not detected (Not detect); C.difficile Toxin A/B Gene PCR Not detected (Not detect); Campylobacter by PCR Not detected (Not detect); Cryptosporidium by PCR Not detected (Not detect); Cyclospora cayetanensis PCR Not detected (Not detect); E. coli O157 by PCR Not detected (Not detect); Entamoeba histolytica PCR Not detected (Not detect); Enteroaggregative E.coli(EAEC) Not detected (Not detect); Enteropathogenic E.coli(EPEC) Not detected (Not detect); Enterotoxigenic E.coli (ETEC) Not detected (Not detect); Giardia lamblia PCR Not detected (Not detect); Norovirus GI/GII PCR Not detected (Not detect); Plesiomonas shigelloides PCR Not detected (Not detect); Rotavirus A PCR Not detected (Not detect); Salmonella PCR Not detected (Not detect); Sapovirus PCR Not detected (Not detect); Shig/EnteroinvasiveE coli EIEC Not detected (Not detect); Shigalike tox-prod E coli STEC Not detected (Not detect); Vibrio PCR Not detected (Not detect); Vibrio cholerae PCR Not detected (Not detect); Yersinia enterocolitica PCR Not detected (Not detect)
[2021-01-31] MEDS: Pantoprazole 40 MG VIAL IVP SCH ×2 (05:29→17:20)
[2021-01-31 06:09] LABS: Basophils % 0.1 %; Eosinophils # 0.1 K/mcL (0.0-0.6); Eosinophils % 0.9 %; Hematocrit 23.1 % (35.3-44.9); Hemoglobin 7.4 g/dL (11.5-15.4); Lymphocytes # 1.4 K/mcL (0.6-4.6); Lymphocytes % 17.7 %; Mean Corpuscular Hemoglobin 29.5 pg (28.0-33.3); Mean Platelet Volume 10.5 fL (9.4-12.4); Monocytes # 0.6 K/mcL (0.0-1.3); Monocytes % 7.5 %; Neutrophils # 5.8 K/mcL (1.6-8.9); Nucleated Red Blood Cells 1.4 /100 WBC (0); Platelet Count 293 K/mcL (140-400); Red Blood Count 2.51 M/mcL (3.82-4.97); Red Cell Distribution Width 22.3 % (11.5-14.5); Segmented Neutrophils % 72.8 %
[2021-01-31 06:38] LABS: BUN/Creatinine Ratio 22 (6-26); Blood Urea Nitrogen 13 mg/dL (6-20); Calcium 8.4 mg/dL (8.6-10.3); Carbon Dioxide 31 mEq/L (23-29); Chloride 100 mEq/L (98-107); Glucose 176 mg/dL (70-105); Magnesium 1.8 mg/dL (1.6-2.6); Osmolality,Calculated 286 (280-300); Phosphorous 1.8 mg/dL (2.7-4.5); Potassium 4.4 mEq/L (3.5-5.1); Sodium 136 mEq/L (136-145); eGFR For African Americans > 60 (> 60); eGFR For Non-African Americans > 60 (> 60)
[2021-01-31] MEDS: Cholecalciferol (D-3) 1,000 UNIT (25MCG) TABLET PO SCH (07:42)
[2021-01-31] MEDS: Sucralfate 1 GM TABLET PO SCH ×4 (07:42→21:08)
[2021-01-31] MEDS: Insulin LISPRO 300 UNITS/3 ML VIAL SUBQ SCH ×4 (07:43→21:09)
[2021-01-31] MEDS: Piperacillin/Tazobactam 3.375 GM in 0.9 % Sodium Chloride Mini Bag 100 ML IVPB SCH ×2 (07:43→15:31)
[2021-01-31] MEDS: Furosemide 20 MG/2 ML VIAL IVP SCH (07:44)
[2021-01-31] MEDS: Budesonide/Formoterol 80/4.5 1 PUFF INH IH SCH ×2 (08:14→21:05)
[2021-01-31] MEDS: Lactobacillus 1 EACH CAP.SPRINK PO SCH ×2 (11:40→21:08)
[2021-01-31] MEDS: Insulin DETEMIR 100 UNIT/ML X5UNITS SUBQ SCH (21:08)
[2021-01-31] MEDS: *HR* OxyCODONE/APAP 5/325 TABLET PO PRN (21:08)
[2021-01-31] MEDS: Gabapentin 300 MG CAPSULE PO SCH (21:08)
[2021-02-01] MEDS: Piperacillin/Tazobactam 3.375 GM in 0.9 % Sodium Chloride Mini Bag 100 ML IVPB SCH ×4 (00:04→23:50)
[2021-02-01 05:07] LABS: Basophils % 0.2 %; Eosinophils # 0.1 K/mcL (0.0-0.6); Eosinophils % 1.5 %; Hematocrit 25.5 % (35.3-44.9); Hemoglobin 7.8 g/dL (11.5-15.4); Immature Granulocytes % 0.3 % (0-4); Lymphocytes # 1.2 K/mcL (0.6-4.6); Lymphocytes % 18.8 %; Mean Corpuscular HGB Conc 30.6 g/dL (31.6-35.5); Mean Corpuscular Hemoglobin 29.2 pg (28.0-33.3); Mean Corpuscular Volume 95.5 fL (83.0-100.0); Mean Platelet Volume 10.1 fL (9.4-12.4); Monocytes # 0.6 K/mcL (0.0-1.3); Monocytes % 9.2 %; Neutrophils # 4.3 K/mcL (1.6-8.9); Nucleated Red Blood Cells 1.1 /100 WBC (0); Platelet Count 288 K/mcL (140-400); Red Blood Count 2.67 M/mcL (3.82-4.97); Red Cell Distribution Width 22.5 % (11.5-14.5); White Blood Count 6.1 K/mcL (4.3-11.1)
[2021-02-01 05:15] LABS: BUN/Creatinine Ratio 15 (6-26); Blood Urea Nitrogen 8 mg/dL (6-20); Calcium 8.1 mg/dL (8.6-10.3); Carbon Dioxide 36 mEq/L (23-29); Chloride 97 mEq/L (98-107); Glucose 253 mg/dL (70-105); Magnesium 1.6 mg/dL (1.6-2.6); Osmolality,Calculated 289 (280-300); Phosphorous 2.1 mg/dL (2.7-4.5); Potassium 3.5 mEq/L (3.5-5.1); Sodium 136 mEq/L (136-145); eGFR For African Americans > 60 (> 60); eGFR For Non-African Americans > 60 (> 60)
[2021-02-01] MEDS: Pantoprazole 40 MG VIAL IVP SCH (05:52)
[2021-02-01] MEDS: Cholecalciferol (D-3) 1,000 UNIT (25MCG) TABLET PO SCH (07:42)
[2021-02-01] MEDS: Lactobacillus 1 EACH CAP.SPRINK PO SCH ×2 (07:42→20:46)
[2021-02-01] MEDS: Sucralfate 1 GM TABLET PO SCH ×4 (07:42→20:46)
[2021-02-01] MEDS: Insulin LISPRO 300 UNITS/3 ML VIAL SUBQ SCH ×4 (07:43→20:47)
[2021-02-01] MEDS: Furosemide 20 MG/2 ML VIAL IVP SCH (07:44)
[2021-02-01] MEDS: Budesonide/Formoterol 80/4.5 1 PUFF INH IH SCH ×2 (10:46→21:05)
[2021-02-01] MEDS: Magnesium Oxide 400 MG TABLET PO SCH (11:48)
[2021-02-01] MEDS: Insulin DETEMIR 100 UNIT/ML X5UNITS SUBQ SCH (20:46)
[2021-02-01] MEDS: Gabapentin 300 MG CAPSULE PO SCH (20:46)
[2021-02-02] MEDS: tiZANidine 4 MG TABLET PO PRN (00:43)
[2021-02-02] MEDS: Piperacillin/Tazobactam 3.375 GM in 0.9 % Sodium Chloride Mini Bag 100 ML IVPB SCH ×3 (07:45→23:58)
[2021-02-02] MEDS: Sucralfate 1 GM TABLET PO SCH ×4 (07:46→21:51)
[2021-02-02] MEDS: Lactobacillus 1 EACH CAP.SPRINK PO SCH ×2 (07:46→21:51)
[2021-02-02] MEDS: Furosemide 20 MG/2 ML VIAL IVP SCH (07:46)
[2021-02-02] MEDS: Magnesium Oxide 400 MG TABLET PO SCH (07:46)
[2021-02-02] MEDS: Cholecalciferol (D-3) 1,000 UNIT (25MCG) TABLET PO SCH (07:46)
[2021-02-02] MEDS: Insulin LISPRO 300 UNITS/3 ML VIAL SUBQ SCH ×4 (07:47→21:53)
[2021-02-02] MEDS: Budesonide/Formoterol 80/4.5 1 PUFF INH IH SCH ×2 (08:16→20:48)
[2021-02-02] MEDS ORDERED: E-Z-HD (BARIUM SULF) SUSPENSION PO ONE (13:20)
[2021-02-02] MEDS ORDERED: E-Z-PAQUE (BARIUM SULF) SUSP 1 BOTTLE PO ONE (13:20)
[2021-02-02 17:22] LABS: Basophils % 0.2 %; Eosinophils # 0.1 K/mcL (0.0-0.6); Hemoglobin 8.6 g/dL (11.5-15.4); Immature Granulocytes % 0.3 % (0-4); Lymphocytes % 16.9 %; Mean Corpuscular HGB Conc 29.7 g/dL (31.6-35.5); Mean Corpuscular Hemoglobin 28.5 pg (28.0-33.3); Mean Platelet Volume 10.4 fL (9.4-12.4); Monocytes # 0.5 K/mcL (0.0-1.3); Monocytes % 7.9 %; Neutrophils # 4.5 K/mcL (1.6-8.9); Platelet Count 299 K/mcL (140-400); Red Blood Count 3.02 M/mcL (3.82-4.97); Red Cell Distribution Width 21.9 % (11.5-14.5); Segmented Neutrophils % 73.7 %; White Blood Count 6.1 K/mcL (4.3-11.1)
[2021-02-02 17:39] LABS: BUN/Creatinine Ratio 15 (6-26); Blood Urea Nitrogen 9 mg/dL (6-20); Calcium 8.3 mg/dL (8.6-10.3); Carbon Dioxide 38 mEq/L (23-29); Chloride 90 mEq/L (98-107); Glucose 307 mg/dL (70-105); Osmolality,Calculated 284 (280-300); Potassium 4.1 mEq/L (3.5-5.1); Sodium 132 mEq/L (136-145); eGFR For African Americans > 60 (> 60); eGFR For Non-African Americans > 60 (> 60)
[2021-02-02] MEDS ORDERED: Insulin DETEMIR 100 UNIT/ML X5UNITS SUBQ SCH (21:00)
[2021-02-02] MEDS: Gabapentin 300 MG CAPSULE PO SCH (21:51)
[2021-02-02] MEDS: *HR* OxyCODONE/APAP 5/325 TABLET PO PRN (23:59)
[2021-02-03 06:29] LABS: Basophils % 0.2 %; Eosinophils # 0.1 K/mcL (0.0-0.6); Hematocrit 30.6 % (35.3-44.9); Hemoglobin 9.1 g/dL (11.5-15.4); Immature Granulocytes % 0.4 % (0-4); Lymphocytes # 1.4 K/mcL (0.6-4.6); Lymphocytes % 25.5 %; Mean Corpuscular HGB Conc 29.7 g/dL (31.6-35.5); Mean Corpuscular Hemoglobin 28.9 pg (28.0-33.3); Mean Corpuscular Volume 97.1 fL (83.0-100.0); Mean Platelet Volume 10.1 fL (9.4-12.4); Monocytes # 0.5 K/mcL (0.0-1.3); Monocytes % 8.8 %; Neutrophils # 3.5 K/mcL (1.6-8.9); Platelet Count 284 K/mcL (140-400); Red Blood Count 3.15 M/mcL (3.82-4.97); Red Cell Distribution Width 21.6 % (11.5-14.5); Segmented Neutrophils % 63.1 %; White Blood Count 5.5 K/mcL (4.3-11.1)
[2021-02-03 06:46] LABS: BUN/Creatinine Ratio 13 (6-26); Blood Urea Nitrogen 7 mg/dL (6-20); Calcium 8.6 mg/dL (8.6-10.3); Carbon Dioxide 39 mEq/L (23-29); Chloride 94 mEq/L (98-107); Glucose 188 mg/dL (70-105); Magnesium 1.6 mg/dL (1.6-2.6); Osmolality,Calculated 285 (280-300); Phosphorous 2.7 mg/dL (2.7-4.5); Sodium 136 mEq/L (136-145); eGFR For African Americans > 60 (> 60); eGFR For Non-African Americans > 60 (> 60)
[2021-02-03] MEDS: Insulin LISPRO 300 UNITS/3 ML VIAL SUBQ SCH ×4 (08:44→21:20)
[2021-02-03] MEDS: Cholecalciferol (D-3) 1,000 UNIT (25MCG) TABLET PO SCH (08:44)
[2021-02-03] MEDS: Lactobacillus 1 EACH CAP.SPRINK PO SCH ×2 (08:44→20:55)
[2021-02-03] MEDS: Sucralfate 1 GM TABLET PO SCH ×4 (08:44→20:55)
[2021-02-03] MEDS: Furosemide 20 MG/2 ML VIAL IVP SCH (08:45)
[2021-02-03] MEDS: Magnesium Oxide 400 MG TABLET PO SCH (08:45)
[2021-02-03] MEDS: Budesonide/Formoterol 80/4.5 1 PUFF INH IH SCH ×2 (10:20→23:30)
[2021-02-03] MEDS: Gabapentin 300 MG CAPSULE PO SCH (20:55)
[2021-02-03] MEDS: Insulin DETEMIR 100 UNIT/ML X5UNITS SUBQ SCH (21:28)
[2021-02-04] MEDS: *HR* OxyCODONE/APAP 5/325 TABLET PO PRN ×2 (01:00→22:08)
[2021-02-04] MEDS: tiZANidine 4 MG TABLET PO PRN (05:28)
[2021-02-04] MEDS: Budesonide/Formoterol 80/4.5 1 PUFF INH IH SCH ×2 (08:09→21:30)
[2021-02-04] MEDS: Sucralfate 1 GM TABLET PO SCH ×4 (08:25→21:18)
[2021-02-04] MEDS: Magnesium Oxide 400 MG TABLET PO SCH (08:25)
[2021-02-04] MEDS: Cholecalciferol (D-3) 1,000 UNIT (25MCG) TABLET PO SCH (08:25)
[2021-02-04] MEDS: Lactobacillus 1 EACH CAP.SPRINK PO SCH ×2 (08:25→19:49)
[2021-02-04] MEDS: Insulin LISPRO 300 UNITS/3 ML VIAL SUBQ SCH ×4 (08:26→19:49)
[2021-02-04 10:54] LABS: Hematocrit 30.7 % (35.3-44.9); Hemoglobin 9.4 g/dL (11.5-15.4)
[2021-02-04] MEDS: Gabapentin 300 MG CAPSULE PO SCH (19:49)
[2021-02-04] MEDS: Insulin DETEMIR 100 UNIT/ML X5UNITS SUBQ SCH (19:49)
[2021-02-05] MEDS: tiZANidine 4 MG TABLET PO PRN ×2 (03:58→19:59)
[2021-02-05] MEDS: Budesonide/Formoterol 80/4.5 1 PUFF INH IH SCH ×2 (08:23→19:58)
[2021-02-05] MEDS: Cholecalciferol (D-3) 1,000 UNIT (25MCG) TABLET PO SCH (09:03)
[2021-02-05] MEDS: Sucralfate 1 GM TABLET PO SCH ×4 (09:03→21:55)
[2021-02-05] MEDS: Magnesium Oxide 400 MG TABLET PO SCH (09:03)
[2021-02-05] MEDS: Insulin LISPRO 300 UNITS/3 ML VIAL SUBQ SCH ×4 (09:03→20:00)
[2021-02-05] MEDS: Lactobacillus 1 EACH CAP.SPRINK PO SCH ×2 (09:03→19:59)
[2021-02-05 11:07] LABS: Hemoglobin 9.2 g/dL (11.5-15.4)
[2021-02-05] MEDS: *HR* OxyCODONE/APAP 5/325 TABLET PO PRN (19:59)
[2021-02-05] MEDS: Gabapentin 300 MG CAPSULE PO SCH (19:59)
[2021-02-05] MEDS: Insulin DETEMIR 100 UNIT/ML X5UNITS SUBQ SCH (19:59)
[2021-02-06] MEDS: *HR* OxyCODONE/APAP 5/325 TABLET PO PRN ×2 (00:13→05:21)
[2021-02-06] MEDS: Nystatin POWDER 30 GM BOTTLE TP SCH ×4 (01:38→20:23)
[2021-02-06 02:00] LABS: Hematocrit 31.6 % (35.3-44.9); Hemoglobin 9.4 g/dL (11.5-15.4)
[2021-02-06] MEDS: Sucralfate 1 GM TABLET PO SCH ×4 (06:27→20:22)
[2021-02-06] MEDS ORDERED: Nystatin SUSP 5 ML UD.LIQ PO SCH (09:00)
[2021-02-06] MEDS: Insulin LISPRO 300 UNITS/3 ML VIAL SUBQ SCH ×4 (09:38→20:22)
[2021-02-06] MEDS: Lactobacillus 1 EACH CAP.SPRINK PO SCH ×2 (09:39→20:22)
[2021-02-06] MEDS: Cholecalciferol (D-3) 1,000 UNIT (25MCG) TABLET PO SCH (09:40)
[2021-02-06] MEDS: Magnesium Oxide 400 MG TABLET PO SCH (09:40)
[2021-02-06] MEDS: Budesonide/Formoterol 80/4.5 1 PUFF INH IH SCH ×2 (10:22→21:02)
[2021-02-06] MEDS: Nystatin SUSP 5 ML UD.LIQ PO SCH ×4 (13:31→20:22)
[2021-02-06] MEDS: Gabapentin 300 MG CAPSULE PO SCH (20:22)
[2021-02-06] MEDS: Insulin DETEMIR 100 UNIT/ML X5UNITS SUBQ SCH (20:23)
[2021-02-07] MEDS: *HR* OxyCODONE/APAP 5/325 TABLET PO PRN ×3 (02:37→22:06)
[2021-02-07 03:19] LABS: Hematocrit 30.3 % (35.3-44.9)
[2021-02-07] MEDS: Insulin LISPRO 300 UNITS/3 ML VIAL SUBQ SCH ×4 (07:28→20:59)
[2021-02-07] MEDS: Budesonide/Formoterol 80/4.5 1 PUFF INH IH SCH ×2 (07:58→20:27)
[2021-02-07] MEDS: Lactobacillus 1 EACH CAP.SPRINK PO SCH ×2 (08:52→21:00)
[2021-02-07] MEDS: Sucralfate 1 GM TABLET PO SCH ×4 (08:52→21:00)
[2021-02-07] MEDS: Magnesium Oxide 400 MG TABLET PO SCH (08:52)
[2021-02-07] MEDS: Nystatin POWDER 30 GM BOTTLE TP SCH ×3 (08:52→20:59)
[2021-02-07] MEDS: Cholecalciferol (D-3) 1,000 UNIT (25MCG) TABLET PO SCH (08:52)
[2021-02-07] MEDS: Nystatin SUSP 5 ML UD.LIQ PO SCH ×5 (12:29→21:00)
[2021-02-07] MEDS: Insulin DETEMIR 100 UNIT/ML X5UNITS SUBQ SCH (21:00)
[2021-02-07] MEDS: Gabapentin 300 MG CAPSULE PO SCH (21:00)
[2021-02-08 06:36] LABS: Hematocrit 33.1 % (35.3-44.9)
[2021-02-08] MEDS: Insulin LISPRO 300 UNITS/3 ML VIAL SUBQ SCH ×4 (07:31→21:08)
[2021-02-08] MEDS: Cholecalciferol (D-3) 1,000 UNIT (25MCG) TABLET PO SCH (07:40)
[2021-02-08] MEDS: Lactobacillus 1 EACH CAP.SPRINK PO SCH ×2 (07:40→21:02)
[2021-02-08] MEDS: Sucralfate 1 GM TABLET PO SCH ×4 (07:40→21:02)
[2021-02-08] MEDS: Nystatin SUSP 5 ML UD.LIQ PO SCH ×4 (07:41→21:03)
[2021-02-08] MEDS: Magnesium Oxide 400 MG TABLET PO SCH (07:41)
[2021-02-08] MEDS: Nystatin POWDER 30 GM BOTTLE TP SCH ×3 (07:41→21:03)
[2021-02-08] MEDS: Budesonide/Formoterol 80/4.5 1 PUFF INH IH SCH ×2 (10:29→20:12)
[2021-02-08] MEDS: *HR* OxyCODONE/APAP 5/325 TABLET PO PRN ×2 (13:18→23:57)
[2021-02-08] MEDS: Gabapentin 300 MG CAPSULE PO SCH (21:02)
[2021-02-08] MEDS: Insulin DETEMIR 100 UNIT/ML X5UNITS SUBQ SCH (21:03)
[2021-02-09] MEDS: tiZANidine 4 MG TABLET PO PRN (05:49)
[2021-02-09] MEDS: Magnesium Oxide 400 MG TABLET PO SCH (08:00)
[2021-02-09] MEDS: Insulin LISPRO 300 UNITS/3 ML VIAL SUBQ SCH ×4 (08:00→20:48)
[2021-02-09] MEDS: Nystatin SUSP 5 ML UD.LIQ PO SCH ×4 (08:00→20:47)
[2021-02-09] MEDS: Cholecalciferol (D-3) 1,000 UNIT (25MCG) TABLET PO SCH (08:00)
[2021-02-09] MEDS: Lactobacillus 1 EACH CAP.SPRINK PO SCH ×2 (08:00→20:45)
[2021-02-09] MEDS: Sucralfate 1 GM TABLET PO SCH ×4 (08:00→20:47)
[2021-02-09] MEDS: Nystatin POWDER 30 GM BOTTLE TP SCH ×3 (08:01→20:47)
[2021-02-09] MEDS: Budesonide/Formoterol 80/4.5 1 PUFF INH IH SCH ×2 (08:42→21:22)
[2021-02-09] MEDS: Gabapentin 300 MG CAPSULE PO SCH (20:45)
[2021-02-09] MEDS: Insulin DETEMIR 100 UNIT/ML X5UNITS SUBQ SCH (20:47)
[2021-02-10] MEDS: *HR* OxyCODONE/APAP 5/325 TABLET PO PRN ×2 (03:20→22:39)
[2021-02-10] MEDS: Insulin LISPRO 300 UNITS/3 ML VIAL SUBQ SCH ×4 (07:42→19:52)
[2021-02-10] MEDS: Lactobacillus 1 EACH CAP.SPRINK PO SCH ×2 (09:22→19:52)
[2021-02-10] MEDS: Magnesium Oxide 400 MG TABLET PO SCH (09:23)
[2021-02-10] MEDS: Nystatin SUSP 5 ML UD.LIQ PO SCH ×4 (09:23→19:52)
[2021-02-10] MEDS: Sucralfate 1 GM TABLET PO SCH ×4 (09:23→19:55)
[2021-02-10] MEDS: Cholecalciferol (D-3) 1,000 UNIT (25MCG) TABLET PO SCH (09:23)
[2021-02-10] MEDS: Nystatin POWDER 30 GM BOTTLE TP SCH ×3 (09:31→19:53)
[2021-02-10] MEDS: Budesonide/Formoterol 80/4.5 1 PUFF INH IH SCH ×2 (09:49→19:51)
[2021-02-10 14:54] LABS: Adenovirus Not Detected (Not Detect); Bordetella Pertussis Not Detected (Not Detect); Coronavirus 229E Not Detected (Not Detect); Coronavirus HKU1 Not Detected (Not Detect); Coronavirus NL63 Not Detected (Not Detect); Coronavirus OC43 Not Detected (Not Detect); Human Metapneumovirus Not Detected (Not Detect); Human Rhinovirus/Enterovirus Not Detected (Not Detect); Influenza A Subtype 2009 H1 Not Detected (Not Detect); Influenza B Not Detected (Not Detect); Parainfluenza Virus 1 Not Detected (Not Detect); Parainfluenza Virus 2 Not Detected (Not Detect); Parainfluenza Virus 3 Not Detected (Not Detect); Parainfluenza Virus 4 Not Detected (Not Detect); Respiratory Syncytial Virus Not Detected (Not Detect); SARS-CoV-2 Not Detected (Not Detect)
[2021-02-10 14:55] LABS: Chlamydophila pneumoniae Not Detected (Not Detect); Mycoplasma pneumoniae Not Detected (Not Detect)
[2021-02-10] MEDS: Gabapentin 300 MG CAPSULE PO SCH (19:52)
[2021-02-10] MEDS: Insulin DETEMIR 100 UNIT/ML X5UNITS SUBQ SCH (20:00)
[2021-02-11] MEDS: tiZANidine 4 MG TABLET PO PRN (04:05)
[2021-02-11] MEDS: Sucralfate 1 GM TABLET PO SCH ×4 (09:15→21:06)
[2021-02-11] MEDS: Nystatin SUSP 5 ML UD.LIQ PO SCH ×4 (09:21→21:07)
[2021-02-11] MEDS: Lactobacillus 1 EACH CAP.SPRINK PO SCH ×2 (09:21→21:06)
[2021-02-11] MEDS: Nystatin POWDER 30 GM BOTTLE TP SCH ×3 (09:21→21:06)
[2021-02-11] MEDS: Magnesium Oxide 400 MG TABLET PO SCH (09:21)
[2021-02-11] MEDS: Cholecalciferol (D-3) 1,000 UNIT (25MCG) TABLET PO SCH (09:21)
[2021-02-11] MEDS: Insulin LISPRO 300 UNITS/3 ML VIAL SUBQ SCH ×4 (09:21→21:12)
[2021-02-11] MEDS: Budesonide/Formoterol 80/4.5 1 PUFF INH IH SCH ×2 (09:53→19:55)
[2021-02-11] MEDS: Simethicone 80 MG TAB.CHEW PO PRN (11:20)
[2021-02-11] MEDS: Gabapentin 300 MG CAPSULE PO SCH (21:06)
[2021-02-11] MEDS: Insulin DETEMIR 100 UNIT/ML X5UNITS SUBQ SCH (21:11)
[2021-02-12] MEDS: tiZANidine 4 MG TABLET PO PRN ×2 (00:43→23:40)
[2021-02-12] MEDS: *HR* OxyCODONE/APAP 5/325 TABLET PO PRN ×2 (00:43→23:40)
[2021-02-12] MEDS: Budesonide/Formoterol 80/4.5 1 PUFF INH IH SCH ×2 (07:52→19:55)
[2021-02-12] MEDS: Insulin LISPRO 300 UNITS/3 ML VIAL SUBQ SCH ×4 (08:18→23:36)
[2021-02-12] MEDS: Sucralfate 1 GM TABLET PO SCH ×4 (09:36→20:34)
[2021-02-12] MEDS: Magnesium Oxide 400 MG TABLET PO SCH (09:58)
[2021-02-12] MEDS: Lactobacillus 1 EACH CAP.SPRINK PO SCH ×2 (09:58→20:34)
[2021-02-12] MEDS: Nystatin SUSP 5 ML UD.LIQ PO SCH ×4 (09:58→20:33)
[2021-02-12] MEDS: Nystatin POWDER 30 GM BOTTLE TP SCH ×3 (09:58→23:36)
[2021-02-12] MEDS: Cholecalciferol (D-3) 1,000 UNIT (25MCG) TABLET PO SCH (09:58)
[2021-02-12] MEDS: Simethicone 80 MG TAB.CHEW PO PRN (17:17)
[2021-02-12] MEDS: Gabapentin 300 MG CAPSULE PO SCH (20:34)
[2021-02-12] MEDS: Insulin DETEMIR 100 UNIT/ML X5UNITS SUBQ SCH (23:39)
[2021-02-13] MEDS: Insulin LISPRO 300 UNITS/3 ML VIAL SUBQ SCH ×4 (08:15→21:27)
[2021-02-13] MEDS: Lactobacillus 1 EACH CAP.SPRINK PO SCH ×2 (08:16→21:12)
[2021-02-13] MEDS: Cholecalciferol (D-3) 1,000 UNIT (25MCG) TABLET PO SCH (08:16)
[2021-02-13] MEDS: Magnesium Oxide 400 MG TABLET PO SCH (08:16)
[2021-02-13] MEDS: Nystatin SUSP 5 ML UD.LIQ PO SCH ×4 (08:16→21:04)
[2021-02-13] MEDS: Sucralfate 1 GM TABLET PO SCH ×4 (08:16→21:04)
[2021-02-13] MEDS: Budesonide/Formoterol 80/4.5 1 PUFF INH IH SCH ×2 (08:28→22:02)
[2021-02-13] MEDS: Nystatin POWDER 30 GM BOTTLE TP SCH ×3 (09:32→21:12)
[2021-02-13] MEDS: Insulin DETEMIR 100 UNIT/ML X5UNITS SUBQ SCH (21:04)
[2021-02-13] MEDS: *HR* OxyCODONE/APAP 5/325 TABLET PO PRN (21:04)
[2021-02-13] MEDS: Gabapentin 300 MG CAPSULE PO SCH (21:04)
[2021-02-13] MEDS: tiZANidine 4 MG TABLET PO PRN (21:04)
[2021-02-14] MEDS: *HR* OxyCODONE/APAP 5/325 TABLET PO PRN ×2 (04:42→09:00)
[2021-02-14] MEDS: Magnesium Oxide 400 MG TABLET PO SCH (07:31)
[2021-02-14] MEDS: Lactobacillus 1 EACH CAP.SPRINK PO SCH ×2 (07:31→21:12)
[2021-02-14] MEDS: Cholecalciferol (D-3) 1,000 UNIT (25MCG) TABLET PO SCH (07:31)
[2021-02-14] MEDS: Sucralfate 1 GM TABLET PO SCH ×4 (07:31→21:12)
[2021-02-14] MEDS: Insulin LISPRO 300 UNITS/3 ML VIAL SUBQ SCH ×4 (07:32→21:13)
[2021-02-14] MEDS: Nystatin SUSP 5 ML UD.LIQ PO SCH ×3 (07:35→17:54)
[2021-02-14] MEDS: Nystatin POWDER 30 GM BOTTLE TP SCH ×2 (09:51→14:14)
[2021-02-14] MEDS: Budesonide/Formoterol 80/4.5 1 PUFF INH IH SCH ×2 (11:13→20:39)
[2021-02-14] MEDS: Insulin DETEMIR 100 UNIT/ML X5UNITS SUBQ SCH (21:12)
[2021-02-14] MEDS: Gabapentin 300 MG CAPSULE PO SCH (21:12)
[2021-02-15] MEDS: tiZANidine 4 MG TABLET PO PRN (00:01)
[2021-02-15] MEDS: *HR* OxyCODONE/APAP 5/325 TABLET PO PRN (00:01)
[2021-02-15] MEDS: Nystatin SUSP 5 ML UD.LIQ PO SCH ×5 (01:22→21:20)
[2021-02-15] MEDS: Budesonide/Formoterol 80/4.5 1 PUFF INH IH SCH ×2 (07:32→19:50)
[2021-02-15] MEDS: Insulin LISPRO 300 UNITS/3 ML VIAL SUBQ SCH ×4 (08:25→21:51)
[2021-02-15] MEDS: Sucralfate 1 GM TABLET PO SCH ×4 (08:31→21:21)
[2021-02-15] MEDS: Lactobacillus 1 EACH CAP.SPRINK PO SCH ×2 (08:31→21:21)
[2021-02-15] MEDS: Cholecalciferol (D-3) 1,000 UNIT (25MCG) TABLET PO SCH (08:31)
[2021-02-15] MEDS: Magnesium Oxide 400 MG TABLET PO SCH (08:31)
[2021-02-15] MEDS: Nystatin POWDER 30 GM BOTTLE TP SCH ×4 (08:32→21:45)
[2021-02-15] MEDS: Gabapentin 300 MG CAPSULE PO SCH (21:20)
[2021-02-15] MEDS: Insulin DETEMIR 100 UNIT/ML X5UNITS SUBQ SCH (21:21)
[2021-02-16] MEDS: *HR* OxyCODONE/APAP 5/325 TABLET PO PRN (00:17)
[2021-02-16] MEDS: Budesonide/Formoterol 80/4.5 1 PUFF INH IH SCH ×2 (08:55→19:48)
[2021-02-16] MEDS: Lactobacillus 1 EACH CAP.SPRINK PO SCH ×2 (09:28→21:51)
[2021-02-16] MEDS: Cholecalciferol (D-3) 1,000 UNIT (25MCG) TABLET PO SCH (09:28)
[2021-02-16] MEDS: Magnesium Oxide 400 MG TABLET PO SCH (09:28)
[2021-02-16] MEDS: Nystatin POWDER 30 GM BOTTLE TP SCH ×3 (09:28→21:57)
[2021-02-16] MEDS: Nystatin SUSP 5 ML UD.LIQ PO SCH ×4 (09:29→21:58)
[2021-02-16] MEDS: Sucralfate 1 GM TABLET PO SCH ×4 (09:33→21:52)
[2021-02-16] MEDS: Insulin LISPRO 300 UNITS/3 ML VIAL SUBQ SCH ×4 (09:34→21:57)
[2021-02-16] MEDS: tiZANidine 4 MG TABLET PO PRN (11:17)
[2021-02-16] MEDS: Fluticasone Propionate Nasal 50 MCG/SPRAY BOTTLE NS SCH (14:24)
[2021-02-16] MEDS: Gabapentin 300 MG CAPSULE PO SCH (21:52)
[2021-02-16] MEDS: Insulin DETEMIR 100 UNIT/ML X5UNITS SUBQ SCH (21:56)
[2021-02-17] MEDS: *HR* OxyCODONE/APAP 5/325 TABLET PO PRN (00:48)
[2021-02-17 01:51] LABS: Hematocrit 37.8 % (35.3-44.9); Hemoglobin 11.6 g/dL (11.5-15.4); Mean Corpuscular HGB Conc 30.7 g/dL (31.6-35.5); Mean Corpuscular Hemoglobin 28.1 pg (28.0-33.3); Mean Corpuscular Volume 91.5 fL (83.0-100.0); Mean Platelet Volume 9.9 fL (9.4-12.4); Platelet Count 474 K/mcL (140-400); Red Blood Count 4.13 M/mcL (3.82-4.97); Red Cell Distribution Width 16.7 % (11.5-14.5); White Blood Count 6.8 K/mcL (4.3-11.1)
[2021-02-17 02:08] LABS: BUN/Creatinine Ratio 18 (6-26); Blood Urea Nitrogen 7 mg/dL (6-20); Calcium 8.9 mg/dL (8.6-10.3); Carbon Dioxide 28 mEq/L (23-29); Chloride 101 mEq/L (98-107); Glucose 101 mg/dL (70-105); Osmolality,Calculated 282 (280-300); Potassium 3.8 mEq/L (3.5-5.1); Sodium 137 mEq/L (136-145); eGFR For African Americans > 60 (> 60); eGFR For Non-African Americans > 60 (> 60)
[2021-02-17] MEDS: Budesonide/Formoterol 80/4.5 1 PUFF INH IH SCH ×2 (08:35→20:24)
[2021-02-17] MEDS: Sucralfate 1 GM TABLET PO SCH ×4 (11:08→21:58)
[2021-02-17] MEDS: Fluticasone Propionate Nasal 50 MCG/SPRAY BOTTLE NS SCH (11:08)
[2021-02-17] MEDS: Nystatin SUSP 5 ML UD.LIQ PO SCH ×4 (11:08→21:59)
[2021-02-17] MEDS: Cholecalciferol (D-3) 1,000 UNIT (25MCG) TABLET PO SCH (11:09)
[2021-02-17] MEDS: Nystatin POWDER 30 GM BOTTLE TP SCH ×3 (11:09→22:28)
[2021-02-17] MEDS: Magnesium Oxide 400 MG TABLET PO SCH (11:11)
[2021-02-17] MEDS: Lactobacillus 1 EACH CAP.SPRINK PO SCH ×2 (11:12→21:59)
[2021-02-17] MEDS: Insulin LISPRO 300 UNITS/3 ML VIAL SUBQ SCH ×4 (11:14→22:00)
[2021-02-17 16:31] LABS: Adenovirus Not Detected (Not Detect); Bordetella Pertussis Not Detected (Not Detect); Chlamydophila pneumoniae Not Detected (Not Detect); Coronavirus 229E Not Detected (Not Detect); Coronavirus HKU1 Not Detected (Not Detect); Coronavirus NL63 Not Detected (Not Detect); Coronavirus OC43 Not Detected (Not Detect); Human Metapneumovirus Not Detected (Not Detect); Human Rhinovirus/Enterovirus Not Detected (Not Detect); Influenza A Subtype 2009 H1 Not Detected (Not Detect); Influenza B Not Detected (Not Detect); Mycoplasma pneumoniae Not Detected (Not Detect); Parainfluenza Virus 1 Not Detected (Not Detect); Parainfluenza Virus 2 Not Detected (Not Detect); Parainfluenza Virus 3 Not Detected (Not Detect); Parainfluenza Virus 4 Not Detected (Not Detect); Respiratory Syncytial Virus Not Detected (Not Detect); SARS-CoV-2 Not Detected (Not Detect)
[2021-02-17] MEDS: Gabapentin 300 MG CAPSULE PO SCH (21:59)
[2021-02-17] MEDS: Insulin DETEMIR 100 UNIT/ML X5UNITS SUBQ SCH (21:59)
[2021-02-17 22:37] VITALS: BP 157/93; PULSE 100; TEMP 98.5; O2SAT 93
== END 2021-02-18 00:33 | DRG 871 ==
LOC: ICNU → SUATTDRO 21:45 → OBSVTOIN 21:45 → 2ANU 01-28 05:29 → 3NENU 02-13 22:05
PROVIDERS: ADMIT Student in an Organized Health Care Education/Training Program; ATTEND Family Medicine
PROC: ENDOEBX (2021-01-27 10:30)